=== PATIENT | female | born 1970 ===

== ENCOUNTER 2020-05-12 12:37 | Outpatient (RCR) | payer MEDICAID, SELFPAY | END 2020-09-20 07:50 | disposition other institution (70) | LOC: HO.PT 12:37 | PROVIDERS: PCP Student in an Organized Health Care Education/Training Program; Visit Provider Student in an Organized Health Care Education/Training Program | DX: M54.2 Cervicalgia (principal); G89.29 Other chronic pain | CPT/HCPCS: 97110; 97112; 97162 ==

== ENCOUNTER → 2020-05-24 12:50 | Outpatient (BNVA) | payer MEDICAID, SELFPAY | PROVIDERS: PCP Student in an Organized Health Care Education/Training Program; Visit Provider Nurse Practitioner | DX: Z76.89 Persons encountering health services in other specified circumstances (principal) ==

== ENCOUNTER 2020-07-15 09:41 | Outpatient (REF) | payer MEDICAID, SELFPAY ==
--- NOTE | ~2020-07-15 | MM_ITS ---
EXAMINATION: MM SCREENING DIGITAL BREAST TOMOSYNTHESIS, BILATERAL CLINICAL INFORMATION: Screening. Asymptomatic. The lifetime risk of breast cancer based on the Tyrer-Cuzick Model is 12%. COMPARISON: Mammography: 07/10/2019, 07/04/2018, 06/28/2017 TECHNIQUE: Digital breast tomosynthesis is performed in both the craniocaudal and mediolateral oblique views along with computer-aided detection (CAD). Synthesized 2D images are generated from the tomosynthesis. FINDINGS: There are scattered areas of fibroglandular density (ACR BI-RADS breast composition Category b). The right breast is unremarkable. There is no developing density or interval mass or architectural abnormality. Neither breast shows abnormal calcifications. The bilateral axilla and skin contours are unremarkable. Left MLO view has some radiating lines posterior upper quadrant on tomography, 9 cm from nipple. There is no correlate on CC view. Patient will be recalled for additional imaging. MM/MM tomosynthesis screening BI IMPRESSION: 1. Left: Question architectural changes posterior upper breast on MLO tomography. 2. Right: No mammographic evidence of malignancy. ASSESSMENT: BI-RADS 0: Incomplete - Need Additional Imaging Evaluation RECOMMENDATION: 1. Additional views of the left breast (3-D MLO spot, 3-D ML). 2. Targeted ultrasound if warranted after review of the additional views. 3. Radiology department staff will contact the patient for additional imaging. This patient's information was entered into a reminder system with a target due date for their next mammogram.
== END 2020-07-15 09:42 | disposition home or self-care (01) ==
LOC: HO.MAMMO 09:41
PROVIDERS: PCP Student in an Organized Health Care Education/Training Program; Visit Provider Student in an Organized Health Care Education/Training Program
DX: Z12.31 Encounter for screening mammogram for malignant neoplasm of breast (principal)
CPT/HCPCS: 77063; 77067

== ENCOUNTER 2020-07-24 14:28 | Outpatient (REF) | payer MEDICAID, SELFPAY ==
--- NOTE | ~2020-07-24 | MM_ITS ---
EXAMINATION: MM DIAGNOSTIC DIGITAL BREAST TOMOSYNTHESIS, LEFT CLINICAL INFORMATION: Recall from screening for questionable radiating lines posterior upper left breast on MLO view. TC score 12%. COMPARISON: Mammography: 07/15/2020, 07/10/2019, 07/04/2018 TECHNIQUE: Digital breast tomosynthesis is performed. 2D images are generated from the tomosynthesis. The following views are obtained: Spot MLO, standard ML. FINDINGS: There are scattered areas of fibroglandular density (ACR BI-RADS breast composition Category b). The additional views show no persistent radiating lines. There is no architectural abnormality or developing density or mass. Results are discussed with the patient at time of visit. MM/MM tomosynthesis diagnostic LT IMPRESSION: Additional views show no architectural abnormality. ASSESSMENT: BI-RADS 1: Negative RECOMMENDATION: Routine annual mammography screening. This patient's information was entered into a reminder system with a target due date for their next mammogram.
== END 2020-07-24 14:29 | disposition home or self-care (01) ==
LOC: HO.MAMMO 14:28
PROVIDERS: PCP Student in an Organized Health Care Education/Training Program; Visit Provider Student in an Organized Health Care Education/Training Program
DX: N64.89 Other specified disorders of breast (principal)
CPT/HCPCS: 77061; 77065

== ENCOUNTER → 2020-10-10 16:18 | Outpatient (BNVA) | payer MEDICAID, SELFPAY | PROVIDERS: PCP Student in an Organized Health Care Education/Training Program; Visit Provider Nurse Practitioner ==

== ENCOUNTER → 2021-02-13 15:12 | Outpatient (BNVA) | payer MEDICAID, SELFPAY | PROVIDERS: PCP Student in an Organized Health Care Education/Training Program; Visit Provider Nurse Practitioner ==

== ENCOUNTER 2021-06-14 15:00 | Outpatient (REF) | payer MEDICAID, SELFPAY ==
[2021-06-14 15:44] LABS: MANUAL DIFF FLAG NO
[2021-06-14 15:51] LABS: Basophils Percent Auto 0.4 % (0-2); Eosinophils Absolute Auto 0.1 X10*3/uL (0.0-0.4); Eosinophils Percent Auto 0.8 % (0-4); Hematocrit 37.7 % (37.0-47.0); Hemoglobin 12.4 g/dl (12.0-16.0); Imm Gran Abs Auto 0.05 X10*3/uL (0.00-0.03); Imm Gran Pct Auto 0.6 % (0.0-0.4); Lymphocytes Percent Auto 34.9 % (20-40); Mean Corpuscular HGB Conc 32.9 g/dl (31.0-35.0); Mean Corpuscular Hemoglobin 31.2 pg (27.0-33.0); Monocytes Absolute Auto 0.6 X10*3/uL (0.1-1.2); Monocytes Percent Auto 7.5 % (2-11); Neutrophils Absolute Auto 4.7 x10*3/uL (2.0-8.3); Neutrophils Percent Auto 55.8 % (45-73); Platelet Count 316 X10*3/uL (160-400); Red Blood Count 3.97 X10*6/uL (4.20-5.50); Red Cell Distribution Width 12.5 % (11.0-16.0); White Blood Count 8.5 X10*3/uL (4.8-10.8)
[2021-06-14 16:10] LABS: Alanine Aminotransferase 43 U/L (0-31); Albumin Level 4.3 g/dL (3.5-5.0); Alkaline Phosphatase 74 U/L (39-117); Anion Gap 12 (12-20); Aspartate Amino Transferase 23 U/L (5-31); Bilirubin Total 0.2 mg/dL (0.0-1.0); Blood Urea Nitrogen 19 mg/dL (9-16); Calcium 10.4 mg/dL (8.4-10.2); Carbon Dioxide 28 mmol/L (22-29); Chloride 106 mmol/L (96-108); Estimated Glomerular Filt Rate 60; Glucose Random 99 mg/dL (60-115); Potassium 4.5 mmol/L (3.3-5.1); Sodium 141 mmol/L (135-145)
== END 2021-06-14 15:01 | disposition home or self-care (01) ==
LOC: HO.LAB 15:00
PROVIDERS: PCP Student in an Organized Health Care Education/Training Program; Visit Provider Nurse Practitioner
DX: K21.9 Gastro-esophageal reflux disease without esophagitis (principal); R14.0 Abdominal distension (gaseous); K59.00 Constipation, unspecified; Z80.0 Family history of malignant neoplasm of digestive organs
CPT/HCPCS: 36415; 80053; 85025; 99212

== ENCOUNTER 2021-07-24 13:51 | Outpatient (REF) | payer MEDICAID, SELFPAY ==
--- NOTE | ~2021-07-24 | MM_ITS ---
EXAMINATION: MM SCREENING DIGITAL BREAST TOMOSYNTHESIS, BILATERAL CLINICAL INFORMATION: Screening. Asymptomatic. Family history mother, paternal grandmother. The lifetime risk of breast cancer based on the Tyrer-Cuzick Model is 20%. COMPARISON: Mammography: 03/23/2021, 07/15/2020, 07/10/2019, 07/04/2018 TECHNIQUE: Digital breast tomosynthesis is performed in both the craniocaudal and mediolateral oblique views along with computer-aided detection (CAD). Synthesized 2D images are generated from the tomosynthesis. Additional left CC view is provided. FINDINGS: There are scattered areas of fibroglandular density (ACR BI-RADS breast composition Category b). There are no significant masses, abnormal calcifications, or other abnormalities. There is fine fibronodular parenchymal pattern similar to prior studies. No architectural abnormality. No developing density. No significant changes. MM/MM tomosynthesis screening BI IMPRESSION: No mammographic evidence of malignancy. ASSESSMENT: BI-RADS 2: Benign RECOMMENDATION: 1. Routine annual mammography screening. 2. The lifetime risk of breast cancer based on the Tyrer-Cuzick Model is 20%. Additional annual adjunct screening with breast MRI may be of benefit in women with a risk score of 20% or greater. This patient's information was entered into a reminder system with a target due date for their next mammogram.
== END 2021-07-24 13:52 | disposition home or self-care (01) ==
LOC: HO.MAMMO 13:51
PROVIDERS: PCP Student in an Organized Health Care Education/Training Program; Visit Provider Student in an Organized Health Care Education/Training Program
DX: Z12.31 Encounter for screening mammogram for malignant neoplasm of breast (principal)
CPT/HCPCS: 77063; 77067

== ENCOUNTER → 2022-03-06 13:45 | Outpatient (BNVA) | payer MEDICAID, SELFPAY | PROVIDERS: PCP Student in an Organized Health Care Education/Training Program; Visit Provider Physician Assistant | DX: M77.11 Lateral epicondylitis, right elbow (principal); M77.12 Lateral epicondylitis, left elbow; M65.4 Radial styloid tenosynovitis [de Quervain] | CPT/HCPCS: 99202 ==

== ENCOUNTER 2022-03-21 09:09 | Day surgery (SDC) | payer MEDICAID, SELFPAY ==
--- NOTE | 2022-03-20 10:18 | HO.ANESPROP2 ---
Documented by User: Claudia Conley NP 03/20/22 10:18 HPI - Anesthesia Eval Consult details Narrative: 51yo F for Colonoscopy PMFSH Active Problems Active Problems: All Active Problems (Updated 03/06/22 @ 14:12 by Miquel Cruz) De Quervain's tenosynovitis, bilateral (Acute) Lateral epicondylitis of both elbows (Acute) GERD (gastroesophageal reflux disease) (Acute) Abdominal bloating (Acute) Constipation (Acute) Dermatophytosis (Acute) HIV (human immunodeficiency virus infection) (Acute) HTN (hypertension), benign (Acute) Allergic rhinitis (Acute) Anxiety (Acute) PVCs (premature ventricular contractions) (Acute) Family history of colon cancer in father (Acute) Past Medical History Medical History Anxiety GERD (gastroesophageal reflux disease) HIV (human immunodeficiency virus infection) HTN (hypertension) PVCs (premature ventricular contractions) Family History Family History Father Colon cancer Mother Asthma Heart problem Sister No problems noted. 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 Meds Allergies Allergy/AdvReac Type Severity Reaction Status Date / Time amoxicillin Allergy Intermediate Hives Verified 03/06/22 13:49 clindamycin Allergy Intermediate Hives Verified 03/06/22 13:49 Home Medications Medication Instructions Recorded Confirmed Last Taken Type bictegravir 50 mg-emtricitabine 1 tab PO DAILY 11/02/21 11/02/21 Unknown History 200 mg-tenofovir alafenam 25 mg tablet (Biktarvy) lisinopril 10 mg tablet 1 tab PO DAILY 11/02/21 11/02/21 Unknown History loratadine 10 mg tablet 1 tab PO DAILY 11/02/21 11/02/21 Unknown History spironolactone 100 mg tablet 1 tab PO DAILY acne 11/02/21 11/02/21 Unknown History Exam Exam Date and Time: March 20, 2022 101 Assessment and Plan Assessment Anesthesia Assessment: Chart Reviewed Documented by User: Tano Tabor MD 03/21/22 09:39 PMFSH Past Medical History Medical History Anxiety GERD (gastroesophageal reflux disease) HIV (human immunodeficiency virus infection) HTN (hypertension) PVCs (premature ventricular contractions) Family History Family History Father Colon cancer Mother Asthma Heart problem Sister No problems noted. 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 Meds Allergies Allergy/AdvReac Type Severity Reaction Status Date / Time amoxicillin Allergy Intermediate Hives Verified 03/06/22 13:49 clindamycin Allergy Intermediate Hives Verified 03/06/22 13:49 Home Medications Medication Instructions Recorded Confirmed Last Taken Type bictegravir 50 mg-emtricitabine 1 tab PO DAILY 11/02/21 11/02/21 Unknown History 200 mg-tenofovir alafenam 25 mg tablet (Biktarvy) lisinopril 10 mg tablet 1 tab PO DAILY 11/02/21 11/02/21 Unknown History loratadine 10 mg tablet 1 tab PO DAILY 11/02/21 11/02/21 Unknown History spironolactone 100 mg tablet 1 tab PO DAILY acne 11/02/21 11/02/21 Unknown History Exam Airway Mallampati Class: II TM Dist: >3cm Neck ROM: Full Loose/Missing/Broken Teeth: No Heart: [id number] Lungs: cta b/l Assessment and Plan Assessment Anesthesia Assessment: Anesthesia Plan Discussed Final Anesthetic Review Family History of Problems with Anesthesia: No History of Problems with Anesthesia: No NPO: Yes ASA Class: II Final Preanesthetic Review: No Changes in Pt Med Stat, Meds/Allgs Chart Reviewed, Consent Obtained/Reviewed and Anes Risks/Benef Reviewed Patient Risk: Intermediate Procedure Risk: Intermediate Assessment/Block/Sedation in SS: Assess/Block/Sedation-SS Anesthetic Plan Anesthetic Plan: MAC: and Agree w/ Assess. and Plan Disposition: Standard PACU
[2022-03-21 07:23] VITALS: BMI 21.9
--- NOTE | 2022-03-21 08:14 | PC.NURSE ---
called patient left a message arrival time 0800 pt not here
--- NOTE | 2022-03-21 08:28 | PC.NURSE ---
patients a no show everyone
[2022-03-21 09:16] VITALS: RESP 18; TEMP 36.1; O2SAT 97
[2022-03-21] MEDS: Lactated Ringers 1,000 ML 100 ML IVCONT (09:36)
--- NOTE | 2022-03-21 09:43 | MHC.SHP ---
Pre-Procedural Eval Section A Date of Service: 03/21/22 Section B Chief Complaint: constipation Details of Present Illness: father with CRC Relevant Family History (Specify if Yes): Yes Relevant Social History: None Present Medications: see Short Stay Collaborative assessment Medical History: Significant History (Anxiety GERD (gastroesophageal reflux disease) HIV (human immunodeficiency virus infection) HTN (hypertension) PVCs (premature ventricular contractions)) History of Previous Operations: Relevant previous surgery/procedure and date(s) (H/O colonoscopy History of section Hx of tubal ligation) Allergies: Allergies Allergy/AdvReac Type Severity Reaction Status Date / Time amoxicillin Allergy Intermediate Hives Verified 03/06/22 13:49 clindamycin Allergy Intermediate Hives Verified 03/06/22 13:49 Review of Systems Sugical H&P ROS: Negative: Constitution, Cardiovascular, Respiratory, Neurological, Psychiatric, Hem-Onc, Allergic/Immunologic, Gastrointestinal, Genitourinary, Musculoskeletal, Integumentary, Endocrine and Eyes/Ears/Nose/Throat Exam Surgical H&P Exam: Normal: HEENT, Normal: Heart, Normal: Lungs, Normal: Extremities, Normal: Abdomen, Normal: Skin and Normal: Neurological Plan Diagnosis/Plan: Unchanged I have reviewed the history and physical and performed a pertinent physical examination on my patient. No changes have occurred unless specified.
[2022-03-21 09:48] VITALS: BP 111/76
--- NOTE | 2022-03-21 09:49 | HO.ANESPROP2 ---
[facility] Active Problems Active Problems: All Active Problems (Updated 03/06/22 @ 14:12 by Miquel Cruz) De Quervain's tenosynovitis, bilateral (Acute) Lateral epicondylitis of both elbows (Acute) GERD (gastroesophageal reflux disease) (Acute) Abdominal bloating (Acute) Constipation (Acute) Dermatophytosis (Acute) HIV (human immunodeficiency virus infection) (Acute) HTN (hypertension), benign (Acute) Allergic rhinitis (Acute) Anxiety (Acute) PVCs (premature ventricular contractions) (Acute) Family history of colon cancer in father (Acute) Past Medical History Medical History Anxiety GERD (gastroesophageal reflux disease) HIV (human immunodeficiency virus infection) HTN (hypertension) PVCs (premature ventricular contractions) Functional capacity: independent ambulation Patient : No Family History Family History Father Colon cancer Mother Asthma Heart problem Sister No problems noted. 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 Meds Allergies Allergy/AdvReac Type Severity Reaction Status Date / Time amoxicillin Allergy Intermediate Hives Verified 03/06/22 13:49 clindamycin Allergy Intermediate Hives Verified 03/06/22 13:49 Active Medications: Current Medications Acetaminophen (Acetaminophen 325 Mg Tablet) 650 mg PO ONCE PRN PRN Reason: Pain, Mild (Pain Scale 1-3) Lactated Ringer's (Lr) 1,000 mls @ 100 mls/hr IVCONT .Q10H TIERRA Last Admin: 03/21/22 09:36 Dose: 100 mls/hr Ondansetron HCl (Ondansetron Hcl 4 Mg/2 Ml Vial) 4 mg IVPUSH ONCE PRN PRN Reason: Nausea and Vomiting Home Medications Medication Instructions Recorded Confirmed Last Taken Type bictegravir 50 mg-emtricitabine 1 tab PO DAILY 11/02/21 11/02/21 Unknown History 200 mg-tenofovir alafenam 25 mg tablet (Biktarvy) lisinopril 10 mg tablet 1 tab PO DAILY 11/02/21 11/02/21 Unknown History loratadine 10 mg tablet 1 tab PO DAILY 11/02/21 11/02/21 Unknown History spironolactone 100 mg tablet 1 tab PO DAILY acne 11/02/21 11/02/21 Unknown History Exam Exam Date and Time: March 21, 2022 0949 Height,Weight and Vital Signs: Height 5 ft 3 in Weight 56.245 kg Last Vital Signs Temp 97 F 03/21/22 09:16 Resp 18 03/21/22 09:16 BP 111/76 03/21/22 09:48 Pulse Ox 97 03/21/22 09:16 O2 Del Method 03/21/22 09:16 Airway Mallampati Class: II TM Dist: >3cm Neck ROM: Full Heart: RRR Lungs: CTA Assessment and Plan Final Anesthetic Review Family History of Problems with Anesthesia: No History of Problems with Anesthesia: No ASA Class: II Final Preanesthetic Review: No Changes in Pt Med Stat, Meds/Allgs Chart Reviewed, Consent Obtained/Reviewed and Anes Risks/Benef Reviewed Patient Risk: Low Procedure Risk: Low Anesthetic Plan Anesthetic Plan: MAC: Disposition: Standard PACU
--- NOTE | 2022-03-21 10:11 | P.OP_ITS ---
Operative Note Operative Note Date of Service: 03/21/22 Narrative: Operative Information Procedure Description: Colonoscopy Indication: constipation Anesthesia: MAC COLONOSCOPY Instrument: Olympus variable stiffness pediatric scope 190L Colonoscopy Monitoring: Vital signs and clinical assessment, continuous EKG monitoring, Pulse oximetry, Carbon Dioxide monitoring and blood pressure monitoring were done throughout the procedure. Colon withdrawal time was 7 minutes. Procedure: The patient was placed in the left lateral decubitis position and pre-procedure medications were administered. After a digital rectal examination of the ano-rectum, the video colonoscope was inserted into the rectum and advanced through the colon to the cecum/TI. The colonoscope was slowly withdrawn in a retrograde panoramic fashion and the colon mucosa was carefully examined including a retroflexed view of the rectum. Findings and interventions are described below. Procedure Difficulty: easy Findings: melanosis coli noted Terminal Ileum-normal Cecum:normal Ascending Colon: normal Transverse Colon -normal Descending Colon:normal Sigmoid Colon: normal Rectum: Retroflexion with small internal hemorrhoids, grade I with skin tags Anorectum - normal Colon preparation: [place] Bowel Preparation Scale Right colon; 2 Transverse colon: 3 Left colon; 3 (0 = Unprepared colon segment with mucosa not seen due to solid stool that cannot be cleared. 1 = Portion of mucosa of the colon segment seen, but other areas of the colon segment not well seen due to staining, residual stool and/or opaque liquid. 2 = Minor amount of residual staining, small fragments of stool and/or opaque liquid, but mucosa of colon segment seen well. 3 = Entire mucosa of colon segment seen well with no residual staining, small fragments of stool or opaque liquid) Impression and Post Procedure Diagnosis: melanosis coli internal hemorrhoids, skin tags Plan: High fiber diet leaflet Avoid straining at stool, epsom salts and sitz bath, anusol supps or cream Repeat Colonoscopy in 5 years due to FH or earlier if clinically indicated Above findings were reviewed with the patient and relevant handouts were provided if indicated.
[2022-03-21 10:15] VITALS: BP 93/59; PULSE 74; RESP 16; TEMP 36.3; O2SAT 96
[2022-03-21 10:30] VITALS: BP 108/69; PULSE 75; RESP 16; TEMP 36.3; O2SAT 98
== END 2022-03-21 11:08 ==
LOC: HO.SSS 09:09
PROVIDERS: PCP Student in an Organized Health Care Education/Training Program; Visit Provider Internal Medicine Gastroenterology
PROC: 0DJD8ZZ Inspection of Lower Intestinal Tract, Via Natural or Artificial Opening Endoscopic (ICD-10-PCS; CPT 45378; principal; 2022-03-21 09:20)
DX: K59.00 Constipation, unspecified (principal); Z80.0 Family history of malignant neoplasm of digestive organs; K63.89 Other specified diseases of intestine; K64.0 First degree hemorrhoids; K64.4 Residual hemorrhoidal skin tags; K21.9 Gastro-esophageal reflux disease without esophagitis; I10 Essential (primary) hypertension; B20 Human immunodeficiency virus [HIV] disease; F41.1 Generalized anxiety disorder; I49.3 Ventricular premature depolarization; Z79.899 Other long term (current) drug therapy; Z88.1 Allergy status to other antibiotic agents
CPT/HCPCS: 45378

== ENCOUNTER → 2022-06-19 08:41 | Outpatient (BNVA) | payer MEDICAID, SELFPAY | PROVIDERS: PCP Student in an Organized Health Care Education/Training Program; Visit Provider Nurse Practitioner | DX: K59.00 Constipation, unspecified (principal); K21.9 Gastro-esophageal reflux disease without esophagitis | CPT/HCPCS: 99212 ==

== ENCOUNTER 2022-07-26 14:25 | Outpatient (REF) | payer MEDICAID, SELFPAY ==
--- NOTE | ~2022-07-26 | MM_ITS ---
EXAMINATION: MM SCREENING DIGITAL BREAST TOMOSYNTHESIS, BILATERAL CLINICAL INFORMATION: Screening. Asymptomatic. Family history breast cancer, mother, paternal grandmother. TC score 21%. COMPARISON: Mammography: 07/24/2021, 07/24/2020, 07/15/2020, 07/10/2019 TECHNIQUE: Digital breast tomosynthesis is performed in both the craniocaudal and mediolateral oblique views along with computer-aided detection (CAD). Synthesized 2D images are generated from the tomosynthesis. FINDINGS: There are scattered areas of fibroglandular density (ACR BI-RADS breast composition Category b). There are no significant masses, abnormal calcifications, or other abnormalities. No architectural abnormality or developing density or significant change from prior studies. The axilla and skin contours are unremarkable. MM/MM tomosynthesis screening BI IMPRESSION: No mammographic evidence of malignancy. ASSESSMENT: BI-RADS 1: Negative RECOMMENDATION: Routine annual mammography screening. This patient's information was entered into a reminder system with a target due date for their next mammogram.
== END 2022-07-26 14:26 | disposition home or self-care (01) ==
LOC: HO.MAMMO 14:25
PROVIDERS: PCP Student in an Organized Health Care Education/Training Program; Visit Provider Student in an Organized Health Care Education/Training Program
DX: Z12.31 Encounter for screening mammogram for malignant neoplasm of breast (principal)
CPT/HCPCS: 77063; 77067

== ENCOUNTER 2022-12-18 10:10 | Outpatient (AMB) | payer MEDICAID, SELFPAY ==
--- NOTE | 2022-12-18 10:25 | A.OFFVIS_ITS ---
Intake Vital Signs 12/18/22 10:28 Height 5 ft 3 in Weight 148 lb 2.41 oz BMI 26.2 BP 129/77 Blood Pressure Location Lt brachial Position Sitting Pulse 84 Intake Visit Reasons: 6 month follow up Intake Note: Lupe presents in office as a est.patient for a 6month f/u PT CC: pt reports having no concerns pt denies any other GI Issues Switch Foreman Required: No Accompanied by: Self / Same As Patient Allergies amoxicillin Allergy (Intermediate, Verified 12/18/22 10:29) Hives clindamycin Allergy (Intermediate, Verified 12/18/22 10:29) Hives HPI 6 month follow up HPI Details Assessment & Plan (1) Constipation: ?Code(s): K59.00 - Constipation, unspecified ?Plan: She tolerated the procedure well, she was counselled re: melanosis coli. She has progressed to bisacodyl since the senna stopped working. This is ok, but she does better when she has her fiber pills 1 tabs bid, but then when I am going well I run out! We have not rxed this, and this would be better than the stimulant laxatives so she is to find out for me what type of fiber (for insurance coverage) and I will take over rx. Her GERD remains well controlled on omeprazole 20 mg daily. ROV 6 mos. (2) GERD (gastroesophageal reflux disease): ?Code(s): K21.9 - Gastro-esophageal reflux disease without esophagitis ? ? ? Medications: New bisacodyl (Dulcola x (bisacodyl)) 10 mg (2 x 5 mg) P O BEDTIME 30 days 60 tabs 6RF K59.00 - Constipat ion, unspecified ? Refilled omeprazole 20 mg? PO DAILY 30 days 30 caps 6RF C ? ? simethicone (Gas R elief (simethicone )) 180 mg? PO QID 30 days PRN 120 caps 6RF abdominal dist ention R14.0 - Abdominal distension (gaseou s) ? docusate sodium 100 mg? PO BID 60 caps 6RF K59.00 - Constipat ion, unspecified TODAY'S VISIT The bisacodyl tablets are now moving her bowels well and her bloating is decreasing. She continues on colace, simethicone and omeprazole 20mg qd. At this point she is satisfied with her GI regimen. ROV 6 mos. PFSH Medical History Anxiety GERD (gastroesophageal reflux disease) HIV (human immunodeficiency virus infection) HTN (hypertension) PVCs (premature ventricular contractions) Surgical History H/O colonoscopy History of section Hx of tubal ligation Family History Father Colon cancer Mother Asthma Heart problem Sister No problems noted. 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 Review of Systems Const Denies fatigue, Denies fever(s), Denies night sweats, Denies poor appetite and Denies weight loss ENT Reports Normal hearing present, Denies dental pain, Denies dysphagia, Denies hearing loss, Denies mouth pain, Denies odynophagia, Denies throat swelling, Denies tongue swelling and Reports other (Dentition adequate) Card Reports no additional complaints Resp Reports no additional complaints GI Denies abdominal pain, Denies melena, Reports bloating, Denies hematochezia, Reports constipation, Denies GI cramping, Denies dysphagia, Denies excessive flatus, Denies early satiety, Reports heartburn, Denies diarrhea, Denies nausea, Denies odynophagia, Denies vomiting and Denies hematemesis Skin/Breast Denies pruritus, Denies lesions, Denies rash and Denies jaundice Neuro Reports Normal hearing present and Denies Abnormal speech present Endo Denies fatigue Aller/Immun Denies throat swelling and Denies tongue swelling Physical Exam Vital Signs: Last Vital Signs Pulse 84 12/18/22 10:28 BP 129/77 12/18/22 10:28 BMI result Body Mass Index 26.2 Const General: cooperative, no acute distress, well developed and well groomed Nutritional Appearance: average body habitus and well nourished Orientation/consciousness: oriented to person, oriented to place and oriented to time Limitations: language barrier HEENT Head: Yes normocephalic and Yes atraumatic Eyes General: appearance normal, both eyes and all related structures Pupils: Equal, round and reactive pupils present Neck Neck: Yes normal visual inspection and Yes no lymphadenopathy Thyroid: Thyroid normal Resp Effort & Inspection: normal respiratory effort and able to speak in complete sentences Auscultation: clear to auscultation bilaterally Cardio Rate: regular rate Rhythm: regular rhythm Heart sounds: Normal, physiologic split S2 sound present Peripheral pulses: radial pulses present and posterior tibial pulses present GI Inspection: No distended and No Abdominal panniculus present Palpation (GI): Soft to palpation, nontender, no guarding, not rigid and No hepatosplenomegaly present Percussion: Yes normal to percussion Auscultation: normal bowel sounds Rectal Exam - Female: deferred Skin General skin exam: no rashes or lesions noted, turgor normal, skin not dry, no jaundice, No spider nevi and no striae Rashes: no rashes Nails: normal Neuro General: oriented to person, oriented to place and oriented to time Cranial nerves: Yes Equal, round and reactive pupils present and Yes Normal hearing present Speech: No Abnormal speech present Extrem General: Yes normal to inspection, No clubbing, No cyanosis and No edema Psych Appearance: grossly normal and well kempt Mental Status: mental status grossly normal Speech and movement: Normal speech and movement present Affect: normal affect Attitude: cooperative Thought process: Normal thought process present and not confabulating Thought content: Normal thought content present Insight: Fair insight present (Psych) Judgement: Fair judgement present (Psych) Assessment & Plan Assessment & Plan (1) GERD (gastroesophageal reflux disease): Code(s): K21.9 - Gastro-esophageal reflux disease without esophagitis Plan: The bisacodyl tablets are now moving her bowels well and her bloating is decreasing. She continues on colace, simethicone and omeprazole 20mg qd. At this point she is satisfied with her GI regimen. ROV 6 mos. (2) Constipation: Code(s): K59.00 - Constipation, unspecified (3) Abdominal bloating: Code(s): R14.0 - Abdominal distension (gaseous) Medications: Refilled bisacodyl (Dulcolax (bisacodyl)) 10 mg (2 x 5 mg) PO BEDTIME 30 days 60 tabs 6RF K59.00 - Constipation, unspecified docusate sodium 100 mg PO BID 60 caps 6RF K59.00 - Constipation, unspecified omeprazole 20 mg PO DAILY 30 days 30 caps 6RF simethicone (Gas Relief (simethicone)) 180 mg PO QID 30 days PRN 120 caps 6RF abdominal distention R14.0 - Abdominal distension (gaseous) Coding Level of Care Code Est Pt Level 3 (89656) Diagnoses GERD (gastroesophageal reflux disease) K21.9 Constipation K59.00 Abdominal bloating R14.0
[2022-12-18 10:28] VITALS: BP 129/77; PULSE 84; BMI 26.2
== END 2022-12-18 10:45 | disposition home or self-care (01) ==
PROVIDERS: Visit Provider Nurse Practitioner
DX: K21.9 Gastro-esophageal reflux disease without esophagitis (principal); K59.00 Constipation, unspecified; R14.0 Abdominal distension (gaseous)
CPT/HCPCS: 99213

== ENCOUNTER → 2022-12-18 10:10 | Outpatient (BNVA) | payer MEDICAID, SELFPAY | PROVIDERS: Visit Provider Nurse Practitioner | DX: K21.9 Gastro-esophageal reflux disease without esophagitis (principal); K59.00 Constipation, unspecified; R14.0 Abdominal distension (gaseous) | CPT/HCPCS: 99213 ==

== ENCOUNTER 2023-02-25 15:16 | Outpatient (REF) | payer MEDICAID, SELFPAY | END 2023-02-25 15:17 | disposition home or self-care (01) | LOC: HO.CHCLNP 15:16 | PROVIDERS: Visit Provider Advanced Practice Midwife | DX: B20 Human immunodeficiency virus [HIV] disease (principal) | CPT/HCPCS: 88112; 88142 ==

== ENCOUNTER 2023-04-24 10:46 | Outpatient (REF) | payer MEDICAID, SELFPAY ==
[2023-04-24 14:28] LABS: MANUAL DIFF FLAG NO
[2023-04-24 14:42] LABS: Basophils Absolute Auto 0.1 X10*3/uL (0.0-0.2); Basophils Percent Auto 0.6 % (0-2); Eosinophils Absolute Auto 0.2 X10*3/uL (0.0-0.4); Eosinophils Percent Auto 2.4 % (0-4); Hematocrit 39.9 % (37.0-47.0); Imm Gran Abs Auto 0.02 X10*3/uL (0.00-0.03); Imm Gran Pct Auto 0.2 % (0.0-0.4); Lymphocytes Percent Auto 35.8 % (20-40); Mean Corpuscular HGB Conc 32.6 g/dl (31.0-35.0); Mean Corpuscular Hemoglobin 30.4 pg (27.0-33.0); Mean Corpuscular Volume 93.2 fL (80.0-98.0); Mean Platelet Volume 12.9 fL (9.4-12.3); Monocytes Absolute Auto 0.6 X10*3/uL (0.1-1.2); Monocytes Percent Auto 6.7 % (2-11); Neutrophils Absolute Auto 4.6 x10*3/uL (2.0-8.3); Neutrophils Percent Auto 54.3 % (45-73); Platelet Count 265 X10*3/uL (160-400); Red Blood Count 4.28 X10*6/uL (4.20-5.50); Red Cell Distribution Width 13.8 % (11.0-16.0); White Blood Count 8.5 X10*3/uL (4.8-10.8)
[2023-04-24 14:48] LABS: Alanine Aminotransferase 46 U/L (0-31); Albumin Level 4.3 g/dL (3.5-5.0); Alkaline Phosphatase 77 U/L (39-117); Anion Gap 13 (12-20); Aspartate Amino Transferase 28 U/L (5-31); Bilirubin Total 0.2 mg/dL (0.0-1.0); Blood Urea Nitrogen 34 mg/dL (9-16); Calcium 10.2 mg/dL (8.4-10.2); Carbon Dioxide 22 mmol/L (22-29); Chloride 109 mmol/L (96-108); Estimated Glomerular Filt Rate 55; Glucose Random 104 mg/dL (60-115); Potassium 4.7 mmol/L (3.3-5.1); Sodium 139 mmol/L (135-145); Total Protein 8.1 g/dL (6.5-8.0)
[2023-04-25 08:04] LABS: Absolute CD3 Count 2411 cells/uL (840-3060); Absolute CD4 Count 1044 cells/uL (490-1740); Absolute CD8 Count 1316 cells/uL (180-1170); Absolute Lymphocytes 3524 cells/uL (850-3900); CD4 CD8 Ratio 0.79 (0.86-5.00); Percent CD3 Cells 68 % (57-85); Percent CD4 Cells 30 % (30-61); Percent CD8 Cells 37 % (12-42)
[2023-04-25 14:48] LABS: HIV RNA PCR Qn Copies 58 copies/mL (NOT DETECTED); HIV RNA PCR Qn Log Copies 1.76 (NOT DETECTED)
== END 2023-04-24 10:47 | disposition home or self-care (01) ==
LOC: HO.CHCLDS 10:46
PROVIDERS: Visit Provider Internal Medicine
DX: B20 Human immunodeficiency virus [HIV] disease (principal)
CPT/HCPCS: 36415; 80053; 85025; 86359; 86360; 87536

== ENCOUNTER 2023-06-20 10:04 | Outpatient (AMB) | payer MEDICAID, SELFPAY ==
--- NOTE | 2023-06-20 10:08 | MHC.OFFVIS ---
Intake Vital Signs 06/20/23 10:09 Height 5 ft 3 in Weight 147 lb 4.301 oz BMI 26.1 BP 128/72 Blood Pressure Location Lt brachial Position Sitting Pulse 97 Intake Visit Reasons: 6 month follow up Intake Note: Patient presents to in office visit today in 6 months follow up of constipation. CC: Patient reports she is now taking Omeprazole Bid because she was experiencing increased heartburn and acid reflux at night and this has been helping well. Denies other GI symptoms today. 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 She continues on colace, simethicone and omeprazole 20mg qd. At this point she is satisfied with her GI regimen. ROV 6 mos. (2) Constipation: Code(s): K59.00 - Constipation, unspecified (3) Abdominal bloating: Code(s): R14.0 - Abdominal distension (gaseous) Medications: Refilled bisacodyl (Dulcola x (bisacodyl)) 10 mg (2 x 5 mg) P O BEDTIME 30 days 60 tabs 6RF K59.00 - Constipat ion, unspecified docusate sodium 100 mg PO BID 60 caps 6RF K59.00 - Constipat ion, unspecified omeprazole 20 mg PO DAILY 30 days 30 caps 6RF simethicone (Gas R elief (simethicone )) 180 mg PO QID 30 days PRN 120 caps 6RF abdominal dist ention R14.0 - Abdominal distension (gaseou s) TODAY'S VISIT She has been taking the omeprazole twice a day because she was having some breakthrough heartburn later in the day. Obviously this is fine. She also continues on her Dulcolax and Colace which are moving her bowels well and simethicone for bloating with good relief. Return office visit in 6 months. [facility] Medical History Anxiety HIV (human immunodeficiency virus infection) GERD (gastroesophageal reflux disease) HTN (hypertension) PVCs (premature ventricular contractions) Surgical History Hx of tubal ligation H/O colonoscopy History of section Family History Father Colon cancer Mother Asthma Heart problem Sister No problems noted. 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 Review of Systems Const Denies fatigue, Denies fever(s), Denies night sweats, Denies poor appetite and Denies weight loss ENT Reports Normal hearing present, Denies dental pain, Denies dysphagia, Denies hearing loss, Denies mouth pain, Denies odynophagia, Denies throat swelling, Denies tongue swelling and Reports other (Dentition adequate) Card Reports no additional complaints Resp Reports no additional complaints GI Denies abdominal pain, Denies melena, Denies bloating, Denies hematochezia, Reports constipation, Denies GI cramping, Denies dysphagia, Denies excessive flatus, Denies early satiety, Reports heartburn, Denies diarrhea, Denies nausea, Denies odynophagia, Denies vomiting and Denies hematemesis Skin/Breast Denies pruritus, Denies lesions, Denies rash and Denies jaundice Neuro Reports Normal hearing present and Denies Abnormal speech present Endo Denies fatigue Aller/Immun Denies throat swelling and Denies tongue swelling Physical Exam Vital Signs: Last Vital Signs Pulse 97 06/20/23 10:09 BP 128/72 06/20/23 10:09 BMI result Body Mass Index 26.1 Const General: cooperative, no acute distress, well developed and well groomed Nutritional Appearance: average body habitus and well nourished Orientation/consciousness: oriented to person, oriented to place and oriented to time Limitations: No language barrier HEENT Head: Yes normocephalic and Yes atraumatic Eyes General: appearance normal, both eyes and all related structures Pupils: Equal, round and reactive pupils present Neck Neck: Yes normal visual inspection and Yes no lymphadenopathy Thyroid: Thyroid normal Resp Effort & Inspection: normal respiratory effort and able to speak in complete sentences Auscultation: clear to auscultation bilaterally Cardio Rate: regular rate Rhythm: regular rhythm Heart sounds: Normal, physiologic split S2 sound present Peripheral pulses: radial pulses present and posterior tibial pulses present GI Inspection: No distended and No Abdominal panniculus present Palpation (GI): Soft to palpation, nontender, no guarding, not rigid and No hepatosplenomegaly present Percussion: Yes normal to percussion Auscultation: normal bowel sounds Rectal Exam - Female: deferred Skin General skin exam: no rashes or lesions noted, turgor normal, skin not dry, no jaundice, No spider nevi and no striae Rashes: no rashes Nails: normal Neuro General: oriented to person, oriented to place and oriented to time Cranial nerves: Yes Equal, round and reactive pupils present and Yes Normal hearing present Speech: No Abnormal speech present Extrem General: Yes normal to inspection, No clubbing, No cyanosis and No edema Psych Appearance: grossly normal and well kempt Mental Status: mental status grossly normal Speech and movement: Normal speech and movement present Affect: normal affect Attitude: cooperative Thought process: Normal thought process present and not confabulating Thought content: Normal thought content present Insight: Fair insight present (Psych) Judgement: Fair judgement present (Psych) Assessment & Plan Assessment & Plan (1) GERD (gastroesophageal reflux disease): Code(s): K21.9 - Gastro-esophageal reflux disease without esophagitis (2) Constipation: Code(s): K59.00 - Constipation, unspecified (3) Abdominal bloating: Code(s): R14.0 - Abdominal distension (gaseous) Plan She has been taking the omeprazole twice a day because she was having some breakthrough heartburn later in the day. Obviously this is fine. She also continues on her Dulcolax and Colace which are moving her bowels well and simethicone for bloating with good relief. She will be traveling to [facility] soon because her daughter is about to give ! Return office visit in 6 months. Medications: Changed From omeprazole 20 mg PO DAILY 30 days 30 caps 6RF To omeprazole 20 mg PO BID 30 days 60 caps 6RF Refilled simethicone (Gas Relief (simethicone)) 180 mg PO QID 30 days PRN 120 caps 6RF abdominal distention R14.0 - Abdominal distension (gaseous) docusate sodium 100 mg PO BID 60 caps 6RF K59.00 - Constipation, unspecified bisacodyl (Dulcolax (bisacodyl)) 10 mg (2 x 5 mg) PO BEDTIME 90 days 180 tabs 3RF K59.00 - Constipation, unspecified Coding Level of Care Code Est Pt Level 3 (13276) Diagnoses GERD (gastroesophageal reflux disease) K21.9 Constipation K59.00 Abdominal bloating R14.0
[2023-06-20 10:09] VITALS: BP 128/72; PULSE 97; BMI 26.1
== END 2023-06-20 10:28 | disposition home or self-care (01) ==
PROVIDERS: PCP Student in an Organized Health Care Education/Training Program; Visit Provider Nurse Practitioner
DX: K21.9 Gastro-esophageal reflux disease without esophagitis (principal); K59.00 Constipation, unspecified; R14.0 Abdominal distension (gaseous)
CPT/HCPCS: 99213

== ENCOUNTER → 2023-06-20 10:04 | Outpatient (BNVA) | payer MEDICAID, SELFPAY | PROVIDERS: PCP Student in an Organized Health Care Education/Training Program; Visit Provider Nurse Practitioner | DX: K59.00 Constipation, unspecified (principal); K21.9 Gastro-esophageal reflux disease without esophagitis; R14.0 Abdominal distension (gaseous); Z79.899 Other long term (current) drug therapy | CPT/HCPCS: 99212 ==

== ENCOUNTER 2023-08-22 11:43 | Outpatient (REF) | payer MEDICAID, SELFPAY | END 2023-08-22 11:44 | disposition home or self-care (01) | LOC: HO.MAMMO 11:43 | PROVIDERS: PCP Student in an Organized Health Care Education/Training Program; Visit Provider Student in an Organized Health Care Education/Training Program | DX: Z12.31 Encounter for screening mammogram for malignant neoplasm of breast (principal) | CPT/HCPCS: 77063; 77067 ==

== ENCOUNTER → 2023-08-22 12:00 | Outpatient (BNV) | payer MEDICAID, SELFPAY | PROVIDERS: PCP Student in an Organized Health Care Education/Training Program; Visit Provider Radiology Diagnostic Radiology | DX: Z12.31 Encounter for screening mammogram for malignant neoplasm of breast (principal) | CPT/HCPCS: 77063; 77067 ==

== ENCOUNTER 2023-10-31 13:45 | Outpatient (REF) | payer MEDICAID, SELFPAY ==
[2023-10-31 14:11] LABS: MANUAL DIFF FLAG NO
[2023-10-31 14:30] LABS: Basophils Absolute Auto 0.1 X10*3/uL (0.0-0.2); Basophils Percent Auto 0.6 % (0-2); Eosinophils Absolute Auto 0.1 X10*3/uL (0.0-0.4); Eosinophils Percent Auto 0.7 % (0-4); Hematocrit 37.7 % (37.0-47.0); Hemoglobin 12.6 g/dl (12.0-16.0); Imm Gran Abs Auto 0.03 X10*3/uL (0.00-0.03); Imm Gran Pct Auto 0.3 % (0.0-0.4); Lymphocytes Absolute Auto 3.5 X10*3/uL (1.2-4.9); Mean Corpuscular HGB Conc 33.4 g/dl (31.0-35.0); Mean Corpuscular Hemoglobin 31.5 pg (27.0-33.0); Mean Corpuscular Volume 94.3 fL (80.0-98.0); Mean Platelet Volume 12.1 fL (9.4-12.3); Monocytes Absolute Auto 0.7 X10*3/uL (0.1-1.2); Monocytes Percent Auto 7.8 % (2-11); Neutrophils Absolute Auto 4.4 x10*3/uL (2.0-8.3); Neutrophils Percent Auto 50.6 % (45-73); Platelet Count 292 X10*3/uL (160-400); White Blood Count 8.6 X10*3/uL (4.8-10.8)
[2023-10-31 15:07] LABS: Anion Gap 14 (12-20); Blood Urea Nitrogen 33 mg/dL (9-16); Calcium 10.4 mg/dL (8.4-10.2); Carbon Dioxide 20 mmol/L (22-29); Chloride 111 mmol/L (96-108); Estimated Glomerular Filt Rate 49; Glucose Random 91 mg/dL (60-115); Potassium 4.1 mmol/L (3.3-5.1); Sodium 141 mmol/L (135-145)
[2023-10-31 15:09] LABS: TSH reflex Free T4 0.62 uIU/mL (0.32-4.0)
== END 2023-10-31 13:46 | disposition home or self-care (01) ==
LOC: HO.CHCLDS 13:45
PROVIDERS: Visit Provider Internal Medicine
DX: F34.1 Dysthymic disorder (principal); R23.2 Flushing
CPT/HCPCS: 36415; 80048; 84443; 85025

== ENCOUNTER 2023-11-13 11:42 | Outpatient (REF) | payer MEDICAID, SELFPAY ==
--- NOTE | ~2023-11-13 | US_ITS ---
EXAMINATION: US RETROPERITONEAL LIMITED (RENAL ONLY) CLINICAL INFORMATION: Low GFR getting worse in the last 6 months. COMPARISON: None available. TECHNIQUE: Real-time imaging of the kidneys. FINDINGS: RIGHT KIDNEY: 10.1 x 4.5 x 4.8 cm (SAG x AP x TRV). The kidney is normal in size, contour, and echogenicity. Renal cortical thickness is normal. No calculi or focal parenchymal lesions. No hydronephrosis. LEFT KIDNEY: 11.7 x 4.2 x 4.2 cm (SAG x AP x TRV). The kidney is normal in size, contour, and echogenicity. Renal cortical thickness is normal. No calculi or focal parenchymal lesions. No hydronephrosis. ? Column of Sulaiman. US/US renal BI IMPRESSION: Normal renal ultrasound.
== END 2023-11-13 11:43 | disposition home or self-care (01) ==
LOC: HO.US 11:42
PROVIDERS: PCP Student in an Organized Health Care Education/Training Program; Visit Provider Internal Medicine
DX: R94.4 Abnormal results of kidney function studies (principal)
CPT/HCPCS: 36415; 76775; 80048; 82306; 83970

== ENCOUNTER 2023-11-13 13:23 | Outpatient (REF) | payer MEDICAID, SELFPAY ==
[2023-11-13 15:06] LABS: Parathyroid Hormone Intact 37.7 pg/mL (8.7-77.1)
[2023-11-13 15:10] LABS: Anion Gap 10 (12-20); Blood Urea Nitrogen 28 mg/dL (9-16); Calcium 10.8 mg/dL (8.4-10.2); Carbon Dioxide 26 mmol/L (22-29); Chloride 109 mmol/L (96-108); Estimated Glomerular Filt Rate 53; Glucose Random 109 mg/dL (60-115); Potassium 4.4 mmol/L (3.3-5.1); Sodium 141 mmol/L (135-145)
[2023-11-13 15:28] LABS: Vitamin D 25-OH Total 31.5 ng/mL (>30)
== END 2023-11-13 13:24 | disposition home or self-care (01) ==
LOC: HO.CHCLDS 13:23
PROVIDERS: Visit Provider Internal Medicine
DX: I47.10 Supraventricular tachycardia, unspecified (principal); E83.52 Hypercalcemia; R94.4 Abnormal results of kidney function studies
CPT/HCPCS: 36415; 80048; 82306; 83970

== ENCOUNTER 2023-11-21 13:51 | Outpatient (AMB) | payer MEDICAID, SELFPAY ==
--- NOTE | 2023-11-21 14:10 | A.OFFVIS_ITS ---
Vital Signs 11/21/23 14:12 Height 5 ft 3 in Weight 145 lb 8.081 oz BMI 25.8 BP 98/64 Blood Pressure Location Rt brachial Position Sitting Pulse 87 Pulse Source Pulse Oximeter Intake Visit Reasons: Hypercalcemia/CONFIRMED Intake Note: New patient present today for Hypercalcemia. Referred by PCP. 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 First noted to have high calcium [2020]. Currently using Calcium supplement [ no]. Takes Vitamin D daily (no) Currently on spironolactone Kidney stones: [no] Osteoporosis: [no] Has not had a bone density. 2 maternal aunts with osteoporosis, History of [place] use: [no) Biotin use: [no] Family history of high calcium or kidney stones: [no] Renal imaging: [pending] DXA:none prior Labs: 08/12/19 08/30/19 06/14/21 11:16 11:42 15:43 Creatinine Calcium 10.5 H D 10.5 H 10.4 H 25-OH Vitamin D Total PTH Intact 04/24/23 10/31/23 11/13/23 10:48 13:46 13:26 Creatinine 1.08 Calcium 10.2 10.4 H 10.8 H 25-OH Vitamin D Total 31.5 PTH Intact 37.7 She reports mood changes and hot flashes which did not improve with the addition of Effexor. She has f/u to discuss with her PCP. Reports some fatigue which she believes is associated with not sleeping well. [facility] Medical History Anxiety HIV (human immunodeficiency virus infection) GERD (gastroesophageal reflux disease) HTN (hypertension) PVCs (premature ventricular contractions) Surgical History Hx of tubal ligation H/O colonoscopy History of section Family History Father Colon cancer Mother Asthma Heart problem Sister No problems noted. 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 Neck exam shows nl thyroid about 15 gms. Lungs CTA. Heart S1 S2 Reg R/R -MRG. Abdomina exam benign . Muscle strength 5/5 proximally. No hirsuitism present. No striae present. Skin exam without lesion Const General: cooperative and healthy appearing Nutritional Appearance: average body habitus Orientation/consciousness: oriented to person Neck Thyroid: Thyroid normal Resp Effort & Inspection: normal respiratory effort Auscultation: clear to auscultation bilaterally Neuro General: oriented to person Results Reviewed Results Reviewed: Laboratory Tests 08/12/19 08/30/19 06/14/21 11:16 11:42 15:43 Creatinine Calcium 10.5 H D 10.5 H 10.4 H 25-OH Vitamin D Total PTH Intact 04/24/23 10/31/23 11/13/23 10:48 13:46 13:26 Creatinine 1.08 Calcium 10.2 10.4 H 10.8 H 25-OH Vitamin D Total 31.5 PTH Intact 37.7 Assessment & Plan Assessment & Plan (1) Hypercalcemia: Code(s): E83.52 - Hypercalcemia Category: Medical Plan: High calcium with normal PTH. Spironolactone can elevate ionized calcium and decrease PTH levels. Vitamin D is slightly low. Will order a 24 urine for calcium to and an ionized calcium. She has a renal ultrasound pending.Will contact patient with lab results and order dexa at that time. She was asked to contact me if she has not received a call from me. We discussed potential cau ses of high calcium and that the clinical indications for treatment were to prevent kidney stones and osteoporosis. Orders: Orders Calcium, Ionized Today E83.52 - Hypercalcemia Calcium, 24 Hr Ur Today E83.52 - Hypercalcemia Coding Level of Care Code Est Pt Level 3 (23422) Diagnoses Hypercalcemia E83.52 Time Spent (min) 30 Comment 15 min review chart and labs 15 with patient
[2023-11-21 14:12] VITALS: BP 98/64; PULSE 87; BMI 25.8
== END 2023-11-21 14:47 | disposition home or self-care (01) ==
PROVIDERS: PCP Student in an Organized Health Care Education/Training Program; Visit Provider Nurse Practitioner Adult Health
DX: E83.52 Hypercalcemia (principal)
CPT/HCPCS: 99203

== ENCOUNTER → 2023-11-21 13:51 | Outpatient (BNVA) | payer MEDICAID, SELFPAY | PROVIDERS: PCP Student in an Organized Health Care Education/Training Program; Visit Provider Nurse Practitioner Adult Health | DX: E83.52 Hypercalcemia (principal) | CPT/HCPCS: 99212 ==

== ENCOUNTER 2023-11-24 13:13 | Outpatient (REF) | payer MEDICAID, SELFPAY ==
[2023-11-25 13:38] LABS: Calcium, Ionized 5.7 mg/dL (4.7-5.5)
[2023-11-25 17:33] LABS: Calcium, 24 Hr Urine 133 mg/24 h; Calcium/Creatinine Ratio 113 mg/g creat (30-275); Creatinine 24Hr Urine 1.18 g/24 h (0.50-2.15)
== END 2023-11-24 13:14 | disposition home or self-care (01) ==
LOC: HO.LAB 13:13
PROVIDERS: PCP Student in an Organized Health Care Education/Training Program; Visit Provider Nurse Practitioner Adult Health
DX: E83.52 Hypercalcemia (principal)
CPT/HCPCS: 36415; 82330; 82340

== ENCOUNTER 2023-12-12 14:45 | Outpatient (REF) | payer MEDICAID, SELFPAY ==
[2023-12-12 17:06] LABS: MANUAL DIFF FLAG NO
[2023-12-12 17:32] LABS: Basophils Percent Auto 0.4 % (0-2); Eosinophils Absolute Auto 0.1 X10*3/uL (0.0-0.4); Eosinophils Percent Auto 1.1 % (0-4); Hematocrit 33.1 % (37.0-47.0); Hemoglobin 11.3 g/dl (12.0-16.0); Imm Gran Abs Auto 0.03 X10*3/uL (0.00-0.03); Imm Gran Pct Auto 0.3 % (0.0-0.4); Lymphocytes Absolute Auto 3.1 X10*3/uL (1.2-4.9); Lymphocytes Percent Auto 34.9 % (20-40); Mean Corpuscular HGB Conc 34.1 g/dl (31.0-35.0); Mean Corpuscular Hemoglobin 31.7 pg (27.0-33.0); Mean Platelet Volume 12.6 fL (9.4-12.3); Monocytes Absolute Auto 0.6 X10*3/uL (0.1-1.2); Monocytes Percent Auto 6.6 % (2-11); Neutrophils Absolute Auto 5.1 x10*3/uL (2.0-8.3); Neutrophils Percent Auto 56.7 % (45-73); Platelet Count 243 X10*3/uL (160-400); Red Blood Count 3.56 X10*6/uL (4.20-5.50); Red Cell Distribution Width 13.6 % (11.0-16.0)
[2023-12-13 03:43] LABS: Syphilis Screen Nonreactive (Nonreactive)
[2023-12-13 03:44] LABS: ~HepC Num1 0.28 S/CO (0.00-0.79); ~Hepatitis C Antibody Nonreactive (Nonreactive)
[2023-12-14 15:54] LABS: HIV RNA PCR Qn Copies 210 copies/mL (NOT DETECTED); HIV RNA PCR Qn Log Copies 2.32 (NOT DETECTED)
[2023-12-14 20:58] LABS: TS Negative Control Passed; TS Panel A 0; TS Panel B 0; TS Positive Control Passed; TSpotTB Negative (Negative)
[2023-12-15 22:24] LABS: Absolute CD3 Count 2367 cells/uL (840-3060); Absolute CD4 Count 1166 cells/uL (490-1740); Absolute CD8 Count 1200 cells/uL (180-1170); Absolute Lymphocytes 3251 cells/uL (850-3900); CD4 CD8 Ratio 0.97 (0.86-5.00); Percent CD3 Cells 73 % (57-85); Percent CD4 Cells 36 % (30-61); Percent CD8 Cells 37 % (12-42)
== END 2023-12-12 14:46 | disposition home or self-care (01) ==
LOC: HO.CHCLDS 14:45
PROVIDERS: Visit Provider Internal Medicine
DX: B20 Human immunodeficiency virus [HIV] disease (principal)
CPT/HCPCS: 36415; 85025; 86359; 86360; 86481; 86780; 86803; 87536

== ENCOUNTER 2023-12-15 10:34 | Outpatient (REF) | payer MEDICAID, SELFPAY ==
[2023-12-15 15:45] LABS: Albumin Level 4.3 g/dL (3.5-5.0); Calcium 9.6 mg/dL (8.4-10.2)
== END 2023-12-15 10:35 | disposition home or self-care (01) ==
LOC: HO.HHCL 10:34
PROVIDERS: Visit Provider Nurse Practitioner Adult Health
DX: E83.52 Hypercalcemia (principal); B20 Human immunodeficiency virus [HIV] disease
CPT/HCPCS: 36415; 82040; 82310

== ENCOUNTER 2023-12-15 10:38 | Outpatient (REF) | payer MEDICAID, SELFPAY ==
[2023-12-15 15:45] LABS: Alanine Aminotransferase 29 U/L (0-31); Albumin Level 4.3 g/dL (3.5-5.0); Alkaline Phosphatase 76 U/L (39-117); Anion Gap 11 (12-20); Aspartate Amino Transferase 19 U/L (5-31); Bilirubin Total 0.3 mg/dL (0.0-1.0); Blood Urea Nitrogen 25 mg/dL (9-16); Calcium 9.8 mg/dL (8.4-10.2); Carbon Dioxide 21 mmol/L (22-29); Chloride 111 mmol/L (96-108); Cholesterol 193 mg/dL (<200); Estimated Glomerular Filt Rate > 60; Glucose Random 99 mg/dL (60-115); HDL Cholesterol 46 mg/dL (>40); LDL Cholesterol Calculated 127 mg/dL (<100); Potassium 3.8 mmol/L (3.3-5.1); Sodium 139 mmol/L (135-145); Total Protein 7.6 g/dL (6.5-8.0); Triglycerides 100 mg/dL (<150)
[2023-12-15 20:19] LABS: Reflex LDLD? No
== END 2023-12-15 10:39 | disposition home or self-care (01) ==
LOC: HO.HHCL 10:38
PROVIDERS: Visit Provider Internal Medicine
DX: B20 Human immunodeficiency virus [HIV] disease (principal); E83.52 Hypercalcemia
CPT/HCPCS: 36415; 80053; 80061

== ENCOUNTER 2024-03-09 12:35 | Outpatient (AMB) | payer MEDICAID, SELFPAY ==
--- NOTE | 2024-03-09 12:39 | A.OFFVIS_ITS ---
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 She was last seen in November at which time Spironlactone was discontinued. She was taking this for acne. After stopping, calcium returned to normal range. She has since restarted just once daily. First noted to have high calcium [2020]. Currently using Calcium supplement [ no]. Takes Vitamin D daily (no) Kidney stones: [no] Osteoporosis: [no] Has not had a bone density. 2 maternal aunts with osteoporosis, History of [place] use: [no) Biotin use: [no] Family history of high calcium or kidney stones: [no] Renal imaging: [pending] DXA:none prior Labs: 08/11/2002/ [id number] Creatinine Calcium 10.5 H D 10.5 H 10.4 H 25-OH Vitamin D Total PTH Intact 04/24/2305/ 10:4813:4613:26 Creatinine 1.08 Calcium 10.2 10.4 H 10.8 H 25-OH Vitamin D Total 31.5 PTH Intact 37.7 She reports mood changes and hot flashes which did not improve with the addition of Effexor. She has f/u to discuss with her PCP. Reports some fatigue which she believes is associated with not sleeping well. [facility] Medical History Anxiety HIV (human immunodeficiency virus infection) GERD (gastroesophageal reflux disease) HTN (hypertension) PVCs (premature ventricular contractions) Surgical History (Updated 03/23/24 @ 15:32 by JAN Naranjo) Hx of tubal ligation H/O colonoscopy History of section Family History Father Colon cancer Mother Asthma Heart problem Sister No problems noted. 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 Absence of acromegalic features. Neck exam reveals nl size thyroid about 15 gms. No thyroid nodules palpable. Heart S1 S2, Reg R/R. No M/R G. Skin exam reveals absence of vitiligo or acanthosis nigricans. No edema Assessment & Plan Assessment & Plan (1) Hypercalcemia: Code(s): E83.52 - Hypercalcemia Category: Medical Plan: 53-year-old female with a history of hypercalcemia, no history of kidney stones or osteoporosis. Calcium level came back normal when she stopped spironolactone. She is now on half dose and was advised to recheck a level in several months. An order was placed for labs and she was not given a follow up appointment today. Follow up p.r.n. Orders: Orders Parathyroid Hormone Intact 03/09/24 E83.52 - Hypercalcemia Calcium 03/09/24 E83.52 - Hypercalcemia Coding Level of Care Code Est Pt Level 3 (02833) Diagnoses Hypercalcemia E83.52 Time Spent (min) 20 Comment Time spent reviewing labs/provider notes, face to face, chart doc
[2024-03-09 12:43] VITALS: BP 100/60; PULSE 75; BMI 25.4
== END 2024-03-09 13:48 | disposition home or self-care (01) ==
PROVIDERS: PCP Student in an Organized Health Care Education/Training Program; Visit Provider Nurse Practitioner Adult Health
DX: E83.52 Hypercalcemia (principal)
CPT/HCPCS: 99213

== ENCOUNTER → 2024-03-09 12:35 | Outpatient (BNVA) | payer MEDICAID, SELFPAY | PROVIDERS: PCP Student in an Organized Health Care Education/Training Program; Visit Provider Nurse Practitioner Adult Health | DX: E83.52 Hypercalcemia (principal) | CPT/HCPCS: 99212 ==

== ENCOUNTER → 2024-03-23 14:57 | Outpatient (AMB) | payer MEDICAID, SELFPAY ==
--- NOTE | 2024-03-23 15:02 | A.OFFVIS_ITS ---
Vital Signs 03/23/24 15:09 Height 5 ft 3 in Weight 145 lb 15.136 oz BMI 25.9 BP 125/71 Blood Pressure Location Lt brachial Position Sitting Pulse 83 Intake Visit Reasons: 6 months follow up Intake Note: Lupe presents in 6 months follow up of GERD and constipation. CC: Patient reports doing well from GI standpoint. She only report neck pain. 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 Accompanied by: Self / Same As Patient Allergies amoxicillin Allergy (Intermediate, Verified 03/23/24 15:21) Hives blackberry Allergy (Intermediate, Verified 03/23/24 15:21) Rash clindamycin Allergy (Intermediate, Verified 03/23/24 15:21) Hives HPI HPI 6 months follow up: Details: Assessment & Plan (1) GERD (gastroesophageal reflux disease): Code(s): K21.9 - Gastro-esophageal reflux disease without esophagitis (2) Constipation: Code(s): K59.00 - Constipation, unspecified (3) Abdominal bloating: Code(s): R14.0 - Abdominal distension (gaseous) Plan She has been taking the omeprazole twice a day because she was having some breakthrough heartburn later in the day. Obviously this is fine. She also continues on her Dulcolax and Colace which are moving her bowels well and simethicone for bloating with good relief. She will be traveling to [facility] soon because her daughter is about to give ! Return office visit in 6 months. Medications: Changed From omeprazole 20 mg PO DAILY 30 days 30 caps 6RF To omeprazole 20 mg PO BID 30 days 60 caps 6RF Refilled simethicone (Gas Relief (simethicone)) 180 mg PO QID 30 days PRN 120 caps 6RF abdominal distention R14.0 - Abdominal distension (gaseous) docusate sodium 100 mg PO BID 60 caps 6RF K59.00 - Constipation, unspecified bisacodyl (Dulcolax (bisacodyl)) 10 mg (2 x 5 mg) PO BEDTIME 90 days 180 tabs 3RF K59.00 - Constipation, unspecified TODAYS VISIT She is a grandmother to a baby boy! She continues to do well on her GI regimen. She continues on omeprazole 20 mg twice a day, bisacodyl, Colace, and Dulcolax. Return office visit in 6 months [facility] Medical History Anxiety HIV (human immunodeficiency virus infection) GERD (gastroesophageal reflux disease) HTN (hypertension) PVCs (premature ventricular contractions) Surgical History (Updated 03/23/24 @ 15:32 by JAN Naranjo) Hx of tubal ligation H/O colonoscopy History of section Family History Father Colon cancer Mother Asthma Heart problem Sister No problems noted. 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 Review of Systems Const Denies fatigue, Denies fever(s), Denies night sweats, Denies poor appetite and Denies weight loss ENT Reports Normal hearing present, Denies dental pain, Denies dysphagia, Denies hearing loss, Denies mouth pain, Denies odynophagia, Denies throat swelling, Denies tongue swelling and Reports other (Dentition adequate) Card Reports no additional complaints Resp Reports no additional complaints GI Details: Denies abdominal pain, Denies melena, Reports bloating, Denies hematochezia, Reports constipation, Denies GI cramping, Denies dysphagia, Denies excessive flatus, Denies early satiety, Reports heartburn, Denies diarrhea, Denies nausea, Denies odynophagia, Denies vomiting and Denies hematemesis Skin/Breast Denies pruritus, Denies lesions, Denies rash and Denies jaundice Neuro Reports Normal hearing present and Denies Abnormal speech present Endo Denies fatigue Aller/Immun Denies throat swelling and Denies tongue swelling Physical Exam Vital Signs: Last Vital Signs Pulse 83 03/23/24 15:09 BP 125/71 03/23/24 15:09 BMI result Body Mass Index 25.9 Const General: cooperative, no acute distress, well developed and well groomed Nutritional Appearance: average body habitus and well nourished Orientation/consciousness: oriented to person, oriented to place and oriented to time Limitations: No language barrier HEENT Head: Yes normocephalic and Yes atraumatic Eyes General: appearance normal, both eyes and all related structures Pupils: Equal, round and reactive pupils present Neck Neck: Yes normal visual inspection and Yes no lymphadenopathy Thyroid: Thyroid normal Resp Effort & Inspection: normal respiratory effort and able to speak in complete sentences Auscultation: clear to auscultation bilaterally Cardio Rate: regular rate Rhythm: regular rhythm Heart sounds: Normal, physiologic split S2 sound present Peripheral pulses: radial pulses present and posterior tibial pulses present GI Inspection: No distended and No Abdominal panniculus present Palpation (GI): Soft to palpation, nontender, no guarding, not rigid and No hepatosplenomegaly present Percussion: Yes normal to percussion Auscultation: normal bowel sounds Rectal Exam - Female: deferred Skin General skin exam: no rashes or lesions noted, turgor normal, skin not dry, no jaundice, No spider nevi and no striae Rashes: no rashes Nails: normal Neuro General: oriented to person, oriented to place and oriented to time Cranial nerves: Yes Equal, round and reactive pupils present and Yes Normal hearing present Speech: No Abnormal speech present Extrem General: Yes normal to inspection, No clubbing, No cyanosis and No edema Psych Appearance: grossly normal and well kempt Mental Status: mental status grossly normal Speech and movement: Normal speech and movement present Affect: normal affect Attitude: cooperative Thought process: Normal thought process present and not confabulating Thought content: Normal thought content present Insight: Good insight present (Psych) Judgement: Good judgement present (Psych) Assessment & Plan Assessment & Plan (1) GERD (gastroesophageal reflux disease): Code(s): K21.9 - Gastro-esophageal reflux disease without esophagitis Category: Medical (2) Abdominal bloating: Code(s): R14.0 - Abdominal distension (gaseous) Category: Medical (3) Constipation: Code(s): K59.00 - Constipation, unspecified Category: Medical (4) Family history of colon cancer in father: Comment: Age 70-80 Code(s): Z80.0 - Family history of malignant neoplasm of digestive organs Category: Medical Plan She is a grandmother to a baby boy! She continues to do well on her GI regimen. She continues on omeprazole 20 mg twice a day, bisacodyl, Colace, and Dulcolax. Return office visit in 6 months Medications: Refilled docusate sodium 100 mg PO BID 60 caps 6RF K59.00 - Constipation, unspecified omeprazole 20 mg PO BID 60 caps 6RF 30 days bisacodyl (Dulcolax (bisacodyl)) 10 mg (2 x 5 mg) PO BEDTIME 180 tabs 3RF 90 days K59.00 - Constipation, unspecified simethicone (Gas Relief (simethicone)) 180 mg PO QID PRN 120 caps 6RF abdominal distention 30 days R14.0 - Abdominal distension (gaseous) Coding Level of Care Code Est Pt Level 3 (98846) Diagnoses GERD (gastroesophageal reflux disease) K21.9 Abdominal bloating R14.0 Constipation K59.00 Family history of colon cancer in father Z80.0
[2024-03-23 15:09] VITALS: BP 125/71; PULSE 83; BMI 25.9
== END ==
PROVIDERS: PCP Student in an Organized Health Care Education/Training Program; Visit Provider Nurse Practitioner
DX: K21.9 Gastro-esophageal reflux disease without esophagitis (principal); R14.0 Abdominal distension (gaseous); K59.00 Constipation, unspecified; Z80.0 Family history of malignant neoplasm of digestive organs
CPT/HCPCS: 99213

== ENCOUNTER → 2024-03-23 14:57 | Outpatient (BNVA) | payer MEDICAID, SELFPAY | PROVIDERS: PCP Student in an Organized Health Care Education/Training Program; Visit Provider Nurse Practitioner | DX: K21.9 Gastro-esophageal reflux disease without esophagitis (principal); K59.00 Constipation, unspecified; R14.0 Abdominal distension (gaseous); Z80.0 Family history of malignant neoplasm of digestive organs | CPT/HCPCS: 99212 ==

== ENCOUNTER 2024-04-15 14:51 | Outpatient (REF) | payer MEDICAID, SELFPAY ==
[2024-04-15 17:42] LABS: MANUAL DIFF FLAG NO
[2024-04-15 17:53] LABS: Basophils Percent Auto 0.3 % (0-2); Eosinophils Absolute Auto 0.2 X10*3/uL (0.0-0.4); Eosinophils Percent Auto 1.8 % (0-4); Hematocrit 36.9 % (37.0-47.0); Hemoglobin 12.4 g/dl (12.0-16.0); Imm Gran Abs Auto 0.03 X10*3/uL (0.00-0.03); Imm Gran Pct Auto 0.3 % (0.0-0.4); Lymphocytes Absolute Auto 3.5 X10*3/uL (1.2-4.9); Lymphocytes Percent Auto 38.6 % (20-40); Mean Corpuscular HGB Conc 33.6 g/dl (31.0-35.0); Mean Corpuscular Hemoglobin 30.9 pg (27.0-33.0); Mean Platelet Volume 12.8 fL (9.4-12.3); Monocytes Absolute Auto 0.7 X10*3/uL (0.1-1.2); Monocytes Percent Auto 7.3 % (2-11); Neutrophils Absolute Auto 4.7 x10*3/uL (2.0-8.3); Neutrophils Percent Auto 51.7 % (45-73); Platelet Count 271 X10*3/uL (160-400); Red Blood Count 4.01 X10*6/uL (4.20-5.50); Red Cell Distribution Width 14.8 % (11.0-16.0)
[2024-04-15 17:54] LABS: Appearance Urine Clear; Color Urine Yellow; Glucose Urine UA Negative (Negative); Leukocyte Esterase Urine Negative (Negative); Nitrite Urine Negative (Negative); PH 5.5 (5.0-9.0); Specific Gravity - Urine 1.025 (1.005-1.025); Urine Blood Negative (Negative); Urine Ketones Negative (Negative); Urine Protein Negative (Neg-Trace)
[2024-04-15 18:02] LABS: Alanine Aminotransferase 41 U/L (0-31); Albumin Level 4.4 g/dL (3.5-5.0); Alkaline Phosphatase 78 U/L (39-117); Anion Gap 10 (12-20); Aspartate Amino Transferase 30 U/L (5-31); Bilirubin Total 0.2 mg/dL (0.0-1.0); Blood Urea Nitrogen 28 mg/dL (9-16); Calcium 9.6 mg/dL (8.4-10.2); Carbon Dioxide 22 mmol/L (22-29); Chloride 112 mmol/L (96-108); Estimated Glomerular Filt Rate 58; Glucose Random 96 mg/dL (60-115); Potassium 3.9 mmol/L (3.3-5.1); Sodium 140 mmol/L (135-145)
[2024-04-17 07:48] LABS: HIV RNA PCR Qn Copies 185 copies/mL (NOT DETECTED); HIV RNA PCR Qn Log Copies 2.27 (NOT DETECTED)
[2024-04-21 00:08] LABS: Absolute CD3 Count 2504 cells/uL (840-3060); Absolute CD4 Count 1178 cells/uL (490-1740); Absolute CD8 Count 1243 cells/uL (180-1170); Absolute Lymphocytes 3600 cells/uL (850-3900); CD4 CD8 Ratio 0.95 (0.86-5.00); Percent CD3 Cells 70 % (57-85); Percent CD4 Cells 33 % (30-61); Percent CD8 Cells 35 % (12-42)
== END 2024-04-15 14:52 | disposition home or self-care (01) ==
LOC: HO.CHCLDS 14:51
PROVIDERS: Visit Provider Internal Medicine
DX: Z21 Asymptomatic human immunodeficiency virus [HIV] infection status (principal)
CPT/HCPCS: 36415; 80053; 81003; 85025; 86359; 86360; 87536

== ENCOUNTER 2024-04-20 14:28 | Outpatient (REF) | payer MEDICAID, SELFPAY ==
[2024-04-21 11:47] LABS: HPV 16,18/45 See PAP report
[2024-04-21 13:56] LABS: HPV 16,18/45 See PAP report
[2024-04-29 01:18] LABS: HPV MRNA E6/E7 Rectal NOT DETECTED
== END 2024-04-20 14:29 | disposition home or self-care (01) ==
LOC: HO.HHCLNP 14:28
PROVIDERS: Visit Provider Family Medicine
DX: B20 Human immunodeficiency virus [HIV] disease (principal); Z12.4 Encounter for screening for malignant neoplasm of cervix
CPT/HCPCS: 36415; 87624; 88112; 88175

== ENCOUNTER 2024-08-27 10:54 | Outpatient (REF) | payer MEDICAID, SELFPAY | END 2024-08-27 10:55 | disposition home or self-care (01) | LOC: HO.MAMMO 10:54 | PROVIDERS: PCP Student in an Organized Health Care Education/Training Program; Visit Provider Student in an Organized Health Care Education/Training Program | DX: Z12.31 Encounter for screening mammogram for malignant neoplasm of breast (principal) | CPT/HCPCS: 77063; 77067 ==

== ENCOUNTER → 2024-08-27 11:15 | Outpatient (BNV) | payer MEDICAID, SELFPAY | PROVIDERS: PCP Student in an Organized Health Care Education/Training Program; Visit Provider Internal Medicine | DX: Z12.31 Encounter for screening mammogram for malignant neoplasm of breast (principal) | CPT/HCPCS: 77063; 77067 ==

== ENCOUNTER 2024-11-10 12:40 | Outpatient (REF) | payer MEDICAID, SELFPAY ==
[2024-11-10 14:20] LABS: MANUAL DIFF FLAG NO
[2024-11-10 14:23] LABS: Basophils Percent Auto 0.3 % (0-2); Eosinophils Absolute Auto 0.2 X10*3/uL (0.0-0.4); Hematocrit 34.4 % (37.0-47.0); Hemoglobin 11.6 g/dl (12.0-16.0); Imm Gran Abs Auto 0.04 X10*3/uL (0.00-0.03); Imm Gran Pct Auto 0.5 % (0.0-0.4); Lymphocytes Absolute Auto 3.4 X10*3/uL (1.2-4.9); Lymphocytes Percent Auto 39.5 % (20-40); Mean Corpuscular HGB Conc 33.7 g/dl (31.0-35.0); Mean Corpuscular Hemoglobin 29.5 pg (27.0-33.0); Mean Corpuscular Volume 87.5 fL (80.0-98.0); Mean Platelet Volume 12.3 fL (9.4-12.3); Monocytes Absolute Auto 0.5 X10*3/uL (0.1-1.2); Monocytes Percent Auto 5.8 % (2-11); Neutrophils Absolute Auto 4.5 x10*3/uL (2.0-8.3); Neutrophils Percent Auto 51.9 % (45-73); Platelet Count 304 X10*3/uL (160-400); Red Blood Count 3.93 X10*6/uL (4.20-5.50); Red Cell Distribution Width 14.2 % (11.0-16.0); White Blood Count 8.7 X10*3/uL (4.8-10.8)
[2024-11-10 15:44] LABS: Alanine Aminotransferase 30 U/L (0-31); Albumin Level 4.4 g/dL (3.5-5.0); Alkaline Phosphatase 84 U/L (39-117); Anion Gap 12 (12-20); Aspartate Amino Transferase 23 U/L (5-31); Bilirubin Total 0.3 mg/dL (0.0-1.0); Blood Urea Nitrogen 30 mg/dL (9-16); Carbon Dioxide 21 mmol/L (22-29); Chloride 113 mmol/L (96-108); Estimated Glomerular Filt Rate 47; Glucose Random 118 mg/dL (60-115); Potassium 3.8 mmol/L (3.3-5.1); Sodium 142 mmol/L (135-145); Total Protein 8.1 g/dL (6.5-8.0)
[2024-11-11 04:47] LABS: HBS Num1 25.08 mIU/mL (0-7.99); HBc Num1 0.22 S/CO (0.00-0.79); HBsAGNum1 0.36 S/CO (0.00-0.99); Hepatitis B Core Antibody Nonreactive (Nonreactive); Hepatitis B Surface Antigen Negative (Negative); ~Hepatitis B Surface Antibody REACTIVE (Nonreactive)
[2024-11-11 15:18] LABS: HIV RNA PCR Qn Copies 434 copies/mL (NOT DETECTED); HIV RNA PCR Qn Log Copies 2.64 (NOT DETECTED)
[2024-11-12 05:27] LABS: Hepatitis A Antibody IgG REACTIVE (Nonreactive); ~Hepatitis A Antibody IgG 6.71 S/CO (0.00-0.99)
[2024-11-14 18:58] LABS: Absolute CD3 Count 2246 cells/uL (840-3060); Absolute CD4 Count 1106 cells/uL (490-1740); Absolute CD8 Count 1079 cells/uL (180-1170); Absolute Lymphocytes 3358 cells/uL (850-3900); CD4 CD8 Ratio 1.02 (0.86-5.00); Percent CD3 Cells 67 % (57-85); Percent CD4 Cells 33 % (30-61); Percent CD8 Cells 32 % (12-42)
== END 2024-11-10 12:41 | disposition home or self-care (01) ==
LOC: HO.CHCLDS 12:40
PROVIDERS: Visit Provider Internal Medicine
DX: Z21 Asymptomatic human immunodeficiency virus [HIV] infection status (principal)
CPT/HCPCS: 36415; 80053; 85025; 86359; 86360; 86704; 86706; 86708; 87340; 87536

== ENCOUNTER 2025-03-21 10:31 | Outpatient (REF) | payer MEDICAID, SELFPAY ==
[2025-03-21 14:18] LABS: MANUAL DIFF FLAG NO
[2025-03-21 14:28] LABS: Hematocrit 37.5 % (37.0-47.0); Hemoglobin 11.9 g/dl (12.0-16.0); Imm Gran Abs Auto 0.02 X10*3/uL (0.00-0.03); Imm Gran Pct Auto 0.3 % (0.0-0.4); Lymphocytes Absolute Auto 3.6 X10*3/uL (1.2-4.9); Mean Corpuscular HGB Conc 31.7 g/dl (31.0-35.0); Mean Corpuscular Hemoglobin 29.8 pg (27.0-33.0); Mean Corpuscular Volume 94.0 fL (80.0-98.0); NRBC Abs Auto 0.000 X10*3/uL (0.0-0.012); NRBC Pct Auto 0.0 /100WBC (0.0-0.2); Platelet Count 209 X10*3/uL (160-400); Red Blood Count 3.99 X10*6/uL (4.20-5.50); White Blood Count 7.7 X10*3/uL (4.8-10.8)
[2025-03-21 14:35] LABS: Alanine Aminotransferase 44 U/L (0-31); Albumin Level 4.5 g/dL (3.5-5.0); Alkaline Phosphatase 83 U/L (39-117); Anion Gap 14 (12-20); Aspartate Amino Transferase 39 U/L (5-31); Blood Urea Nitrogen 20 mg/dL (9-16); Calcium 9.6 mg/dL (8.4-10.2); Carbon Dioxide 21 mmol/L (22-29); Chloride 111 mmol/L (96-108); Cholesterol 159 mg/dL (<200); Estimated Glomerular Filt Rate > 60; HDL Cholesterol 46 mg/dL (>40); Potassium 3.8 mmol/L (3.3-5.1); Sodium 142 mmol/L (135-145); Total Protein 7.6 g/dL (6.5-8.0); Triglycerides 77 mg/dL (<150)
[2025-03-21 14:37] LABS: Hemoglobin A1C 120.4988 umol/L
[2025-03-21 15:46] LABS: Reflex LDLD? No
[2025-03-22 04:30] LABS: ~HepC Num1 0.17 S/CO (0.00-0.79); ~Hepatitis C Antibody Nonreactive (Nonreactive)
[2025-03-22 21:59] LABS: HIV RNA PCR Qn Copies 46 copies/mL (NOT DETECTED); HIV RNA PCR Qn Log Copies 1.66 (NOT DETECTED)
[2025-03-23 22:33] LABS: TS Negative Control Passed; TS Panel A 0; TS Panel B 0; TS Positive Control Passed; TSpotTB Negative (Negative)
[2025-03-26 15:59] LABS: Absolute CD3 Count 2562 cells/uL (840-3060); Absolute CD8 Count 1382 cells/uL (180-1170); Percent CD3 Cells 64 % (57-85); Percent CD8 Cells 35 % (12-42)
== END 2025-03-21 10:32 | disposition home or self-care (01) ==
LOC: HO.CHCLDS 10:31
PROVIDERS: Visit Provider Internal Medicine
DX: Z11.1 Encounter for screening for respiratory tuberculosis (principal); Z11.59 Encounter for screening for other viral diseases; Z21 Asymptomatic human immunodeficiency virus [HIV] infection status
CPT/HCPCS: 36415; 80053; 80061; 83036; 85025; 86359; 86360; 86481; 86592; 86803; 87536

== ENCOUNTER 2025-03-29 08:56 | Emergency (ER) | payer MEDICAID, SELFPAY ==
--- NOTE | ~2025-03-29 | XR_ITS ---
EXAMINATION: XR HIP, RIGHT CLINICAL INFORMATION: HIP PAIN COMPARISON: None available. TECHNIQUE: AP pelvis, and 2 views of the right hip. FINDINGS: There is no fracture, dislocation, or suspicious bone lesion. There is normal alignment. Joint spaces are maintained. No significant arthropathy. Normal acetabular coverage. Normal femoral head contour without evidence of AVN. Normal-appearing soft tissues. XR/XR hip RT w PEL1V IMPRESSION: Normal right hip. Electronically signed by: Alejandro Fairbanks MD 03/29/2025 09:35 AM EDT
[2025-03-29 09:09] VITALS: BP 156/70; PULSE 75; RESP 18; TEMP 36; O2SAT 98; BMI 25.2
--- NOTE | 2025-03-29 13:12 | ED.GENADULT ---
HPI - General Adult General Chief complaint: Extremity Injury, Lower Stated complaint: R hip pain Time Seen by Provider: 03/29/25 13:04 Source: patient, RN notes reviewed and old records reviewed Mode of arrival: ambulatory Limitations: no limitations History of Present Illness ED Provider: GERSON Augustine HPI narrative: 54-year-old female with medical history of GERD, constipation, HIV on ART, HTN, hypercalcemia, presents to the ED due to right hip pain. Patient states she had a mechanical fall approximately 3 months ago where she tripped and fell onto the right hip causing pain, however has been improving. Patient states approximately 1 week ago while she was cleaning and changing rugs around her home she noticed dull aching right hip pain that night. Patient states pain has been worsening over the last few days and has been taking ibuprofen and tylenol with mild relief. Denies radicular symptoms. MD complaint: R hip pain Related Data Home Medications ?Medication ?Instructions ?Recorded ?Confirmed bictegravir 50 mg-emtricitabine 1 tab PO DAILY 11/02/21 11/02/21 200 mg-tenofovir alafenam 25 mg tablet (Biktarvy) lisinopril 10 mg tablet 1 tab PO DAILY 11/02/21 11/02/21 loratadine 10 mg tablet 1 tab PO DAILY 11/02/21 11/02/21 spironolactone 100 mg tablet 1 tab PO DAILY acne 11/02/21 11/02/21 albuterol sulfate 90 mcg/actuation 2 puff inhalation Q4H PRN wheezing 11/21/23 aerosol inhaler (Ventolin HFA) venlafaxine 37.5 mg 37.5 mg PO DAILY 11/21/23 capsule,extended release 24 hr Previous Rx's ?Medication ?Instructions ?Recorded naproxen 500 mg tablet 500 mg PO BID #60 tabs 11/14/23 bisacodyl 5 mg tablet,delayed 10 mg (2 x 5 mg) PO BEDTIME 90 03/23/24 release (Dulcolax (bisacodyl)) days #180 tabs docusate sodium 100 mg capsule 100 mg PO BID #60 caps 03/23/24 omeprazole 20 mg capsule,delayed 20 mg PO BID 30 days #60 caps 03/23/24 release simethicone 180 mg capsule (Gas 180 mg PO QID PRN abdominal 03/23/24 Relief (simethicone)) distention 30 days #120 caps cyclobenzaprine 5 mg tablet 5 mg PO TID PRN muscle spasm #15 03/29/25 tabs ketorolac 10 mg tablet 10 mg PO Q8H PRN pain 3 days #9 03/29/25 tabs Allergies Allergy/AdvReac Type Severity Reaction Status Date / Time amoxicillin Allergy Intermediate Hives Verified 03/29/25 09:10 blackberry Allergy Intermediate Rash Verified 03/29/25 09:10 clindamycin Allergy Intermediate Hives Verified 03/29/25 09:10 [facility] Past Medical History Attestation statement: The following information was validated with the patient. Source: old records reviewed and nursing notes reviewed Medical History (Updated 03/29/25 @ 13:29 by Juanjo Augustine PA-C) Anxiety HIV (human immunodeficiency virus infection) GERD (gastroesophageal reflux disease) HTN (hypertension) PVCs (premature ventricular contractions) Surgical History (Updated 03/23/24 @ 15:32 by JAN Naranjo) Hx of tubal ligation H/O colonoscopy History of section Family History Family History Father Colon cancer Mother Asthma Heart problem Sister No problems noted. 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 HEENT: ?NC, AT. MMM. EOMI, clear conjunctiva, oropharynx clear. NECK: ?Supple without lymphadenopathy.? No stiffness or restricted ROM. HEART:? Normal rate and regular rhythm, normal S1/S2, no m/r/g LUNGS:? CTAB, moving air well. No crackles or wheezes are heard. EXTREMITIES: ?Without cyanosis, clubbing or edema. TTP over R SI joint, no trochanter pain, no Lumbar paraspinal tenderness, no midline spinal tenderness or bony step offs palpated. ROM intact, SILT, patient ambulating without antalgic gait. NEUROLOGICAL: ?Grossly nonfocal. Alert and oriented, moving all 4 extremities. Observed to ambulate with normal gait. Skin: ?Warm and dry without any rash. Medications Administered Discontinued Medications Generic Name Dose Route Start Last Admin Trade Name Steve PRN Reason Stop Dose Admin Acetaminophen 650 mg 03/29/25 09:13 03/29/25 09:17 Acetaminophen 325 Mg Tablet PO 03/29/25 09:14 650 mg ONCE ONE Administration Medical Decision Making Medical Decision Making [facility] Narrative: 54-year-old female with medical history of GERD, constipation, HIV on ART, HTN, hypercalcemia, presents to the ED due to right hip pain. Patient states she had a mechanical fall approximately 3 months ago where she tripped and fell onto the right hip causing pain, however has been improving. Patient states approximately 1 week ago while she was cleaning and changing rugs around her home she noticed dull aching right hip pain that night. Patient states pain has been worsening over the last few days and has been taking ibuprofen and tylenol with mild relief. Denies radicular symptoms. VS on initial observation-BP 156/70, pulse rate of 75, respiratory rate of 18, afebrile with oral temp of 96.8?, O2 saturation 98% on room air. On physical exam patient has tenderness surrounding the right-sided SI joint, no pain to palpation over the greater trochanter of the right hip, no Lumbar paraspinal tenderness, no midline spinal tenderness or bony step offs palpated. ROM intact, SILT, patient ambulating without antalgic gait XR R hip/pelvis is negative for fracture or dislocation Patient received 650 mg of Tylenol while in waiting room, is being medicated with 30 mg IM Toradol for pain management. Patient with right-sided pain over the SI joint, without anatomical abnormalities palpated within this area, no tenderness over the greater trochanter, no lumbar paraspinal tenderness, no midline spinal tenderness, no bony step-offs palpated, full ROM of lumbar spine and of R hip. Patient able to bear weight and ambulate without antalgic gait. Patient was given 650mg of tylenol while in the waiting room which she states improved pain. Patient's symptoms most likely due to musculoskeletal pain, patient is afebrile, no history of IVDU. Patient will be discharged with 5 day of Flexeril, 3 days of Toradol for pain management. I counseled patient to follow up with her primary care doctor. I counseled patient on strict return precautions. Patient well enough to go home for self-care. Patient is in agreement with the plan. Differential Diagnosis Differential Diagnoses: The differential diagnosis associated with the presentation includes Avascular necrosis of right hip Hip fracture Hip dislocation Osteoarthritis of right hip Sciatica Admission/Observation Consideration of admission/observation: Escalation of care including admission/observation considered Independent Interpretation I performed an independent interpretation of an: Plain X-Ray Interpretation: I independently interpreted the XR R hip/pelvis which was negative for fracture, dislocation or osteoarthritic changes, I agree with the radiologist's interpretation Radiology Impression Discussion of test interpretation with radiology: I have reviewed the radiologist's reading. Radiologist Impression: XR R hip/pelvis FINDINGS: There is no fracture, dislocation, or suspicious bone lesion. There is normal alignment. Joint spaces are maintained. No significant arthropathy. Normal acetabular coverage. Normal femoral head contour without evidence of AVN. Normal-appearing soft tissues. XR/XR hip RT w PEL1V IMPRESSION: Normal right hip. Electronically signed by: Alejandro Fairbanks MD 03/29/2025 09:35 AM EDT Dictated By: Alejandro Fairbanks MD Signed By: <Electronically signed by Alejandro Fairbanks MD in OV> 03/29/25 0935 External Record Review External record reviewed: Inpatient record, Office record and Outpatient record Chronic Conditions Patient?s care impacted by: Hypertension and Other (GERD, constipation, HIV,) Social Determinants Patient?s care significantly limited by Social Determinants of Health including: Other Social Determinant of Health Discharge Plan Discharge Clinical Impression: Muscle spasm Patient Disposition: Home, Self-Care Additional Instructions: You were evaluated in the ED due to right hip pain. The x-ray of the right hip and pelvis was negative for fracture or dislocation. Your physical exam was reassuring as you have full range of motion, are able to bear weight and walk on the L hip. While in the department you were medicated with 30 mg IM Toradol, 650 mg of oral Tylenol for pain management. Your pain is most likely due to musculoskeletal strain. You are being prescribed 5 days of Flexeril which is a muscle relaxer, and 3 days of Toradol which is a strong NSAID. While taking Toradol, you can take 500 mg of Tylenol every 6 hours for additional pain management. While taking Toradol do not take any other NSAID medications such as ibuprofen, Motrin, Aleve, Naprosyn, or any other NSAID medications. Additionally, you can ice this area. Please follow up with your primary care doctor to ensure resolution of your symptoms. Please return to the emergency department if you experience worsening right hip pain, inability to bear weight on the hip, inability to walk, or any new/worsening/concerning symptoms. Prescriptions: New cyclobenzaprine 5 mg tablet 5 mg PO TID PRN (Reason: muscle spasm) Qty: 15 0RF ketorolac 10 mg tablet 10 mg PO Q8H PRN (Reason: pain) 3 Days Qty: 9 0RF Rx Instructions: maximum total duration of 5 days from all oral, intranasal, or parenteral formulations PT given 30 mg IM toradol while in department for pain management No Action naproxen 500 mg tablet 500 mg PO BID Qty: 60 3RF spironolactone 100 mg tablet 1 tab PO DAILY lisinopril 10 mg tablet 1 tab PO DAILY loratadine 10 mg tablet 1 tab PO DAILY Biktarvy 50-200-25 mg tablet 1 tab PO DAILY omeprazole 20 mg capsule,delayed release(DR/EC) 20 mg PO BID 30 Days Qty: 60 6RF bisacodyl [Dulcolax (bisacodyl)] 5 mg tablet,delayed release (DR/EC) 10 mg PO BEDTIME 90 Days Qty: 180 3RF simethicone [Gas Relief (simethicone)] 180 mg capsule 180 mg PO QID PRN (Reason: abdominal distention) 30 Days Qty: 120 6RF docusate sodium 100 mg capsule 100 mg PO BID Qty: 60 6RF venlafaxine 37.5 mg capsule,extended release 24hr 37.5 mg PO DAILY albuterol sulfate [Ventolin HFA] 90 mcg/actuation HFA aerosol inhaler 2 puff inhalation Q4H PRN (Reason: wheezing) Print Language: Maori
[2025-03-29 14:29] VITALS: BP 156/70; PULSE 75; RESP 18; TEMP 36; O2SAT 98
== END 2025-03-29 14:29 | disposition home or self-care (01) ==
PROVIDERS: Emergency Provider Emergency Medicine; PCP Student in an Organized Health Care Education/Training Program
DX: M62.838 Other muscle spasm (principal); M25.551 Pain in right hip; I10 Essential (primary) hypertension; K21.9 Gastro-esophageal reflux disease without esophagitis
CPT/HCPCS: 73502; 96372; 99283; 99284; J1885

== ENCOUNTER → 2025-03-29 09:29 | Outpatient (BNV) | payer MEDICAID, SELFPAY | PROVIDERS: PCP Student in an Organized Health Care Education/Training Program; Visit Provider Radiology Diagnostic Radiology | DX: M25.551 Pain in right hip (principal) | CPT/HCPCS: 73502 ==

== ENCOUNTER 2025-04-07 10:39 | Outpatient (AMB) | payer MEDICAID, SELFPAY ==
--- NOTE | 2025-04-07 10:43 | A.OFFVIS_ITS ---
Vital Signs 04/07/25 10:45 Height 5 ft 3 in Weight 142 lb BMI 25.2 BP 112/76 Blood Pressure Location Rt brachial Position Sitting Pulse 98 Pulse Source Pulse Oximeter Pulse Oximetry (%) 99 Oxygen Delivery Method Room Air Intake Visit Reasons: Follow up Meds Intake Note: Est pt for mgmt of GERD + CIC. CC: Pt denies any new GI concerns or sx at this time. Needs refill of PPI. 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 Required: No Accompanied by: Self / Same As Patient Allergies amoxicillin Allergy (Intermediate, Verified 03/29/25 09:10) Hives blackberry Allergy (Intermediate, Verified 03/29/25 09:10) Rash clindamycin Allergy (Intermediate, Verified 03/29/25 09:10) Hives HPI HPI Follow up Meds: Details: Assessment & Plan (1) GERD (gastroesophageal reflux disease): Code(s): K21.9 - Gastro-esophageal reflux disease without esophagitis Category: Medical (2) Abdominal bloating: Code(s): R14.0 - Abdominal distension (gaseous) Category: Medical (3) Constipation: Code(s): K59.00 - Constipation, unspecified Category: Medical (4) Family history of colon cancer in father: Comment: Age 70-80 Code(s): Z80.0 - Family history of malignant neoplasm of digestive organs Category: Medical Plan She is a grandmother to a baby boy! She continues to do well on her GI regimen. She continues on omeprazole 20 mg twice a day, bisacodyl, Colace, and Dulcolax. Return office visit in 6 months Medications: Refilled docusate sodium 100 mg PO BID 60 caps 6RF K59.00 - Constipation, unspecified omeprazole 20 mg PO BID 60 caps 6RF 30 days bisacodyl (Dulcolax (bisacodyl)) 10 mg (2 x 5 mg) PO BEDTIME 180 tabs 3RF 90 days K59.00 - Constipation, unspecified simethicone (Gas Relief (simethicone)) 180 mg PO QID PRN 120 caps 6RF abdominal distention 30 days R14.0 - Abdominal distension (gaseous) [facility] VISIT [facility] Medical History Anxiety HIV (human immunodeficiency virus infection) GERD (gastroesophageal reflux disease) HTN (hypertension) PVCs (premature ventricular contractions) Surgical History Hx of tubal ligation H/O colonoscopy History of section Family History Father Colon cancer Mother Asthma Heart problem Sister No problems noted. 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 Review of Systems Const Denies fatigue, Denies fever(s), Denies night sweats, Denies poor appetite and Denies weight loss Eyes Reports requires corrective lenses ENT Reports Normal hearing present, Denies dental pain, Denies dysphagia, Denies hearing loss, Denies mouth pain, Denies odynophagia, Denies throat swelling, Denies tongue swelling and Reports other (Dentition adequate) GI Details: Denies abdominal pain, Denies melena, Denies bloating, Denies hematochezia, Denies constipation, Denies GI cramping, Denies dysphagia, Denies excessive flatus, Denies early satiety, Denies heartburn, Denies diarrhea, Denies nausea, Denies odynophagia, Denies vomiting and Denies hematemesis Skin/Breast Denies pruritus, Denies lesions, Denies rash and Denies jaundice Neuro Reports Normal hearing present and Denies Abnormal speech present Endo Denies fatigue Aller/Immun Denies throat swelling and Denies tongue swelling Physical Exam Vital Signs: Last Vital Signs Pulse 98 04/07/25 10:45 BP 112/76 04/07/25 10:45 Pulse Ox 99 04/07/25 10:45 Oxygen Delivery Method Room Air 04/07/25 10:45 BMI result Body Mass Index 25.2 Const General: cooperative, no acute distress, well developed and well groomed Nutritional Appearance: well nourished, obese and overweight Orientation/consciousness: oriented to person, oriented to place and oriented to time Limitations: No language barrier, ambulation with cane, ambulation with walker and wheelchair HEENT Head: Yes normocephalic and Yes atraumatic Eyes General: appearance normal, both eyes and all related structures Pupils: Equal, round and reactive pupils present Neck Neck: Yes normal visual inspection and Yes no lymphadenopathy Thyroid: Thyroid normal Resp Effort & Inspection: normal respiratory effort and able to speak in complete sentences Auscultation: clear to auscultation bilaterally Cardio Rate: regular rate Rhythm: regular rhythm Heart sounds: Normal, physiologic split S2 sound present Peripheral pulses: radial pulses present and posterior tibial pulses present GI Inspection: No distended and No Abdominal panniculus present Palpation (GI): Soft to palpation, nontender, no guarding, not rigid, No hepatosplenomegaly present and Hepatosplenomegaly present Percussion: Yes normal to percussion Auscultation: normal bowel sounds Rectal Exam - Female: deferred Skin General skin exam: no rashes or lesions noted, turgor normal, skin not dry, no jaundice, No spider nevi and no striae Rashes: no rashes Nails: normal Neuro General: oriented to person, oriented to place and oriented to time Cranial nerves: Yes Equal, round and reactive pupils present and Yes Normal hearing present Speech: No Abnormal speech present Extrem General: Yes normal to inspection, No clubbing, No cyanosis and No edema Psych Thought process: Normal thought process present and not confabulating Thought content: Normal thought content present Insight: Good insight present (Psych) Judgement: Good judgement present (Psych) Assessment & Plan Assessment & Plan (1) GERD (gastroesophageal reflux disease): Code(s): K21.9 - Gastro-esophageal reflux disease without esophagitis Category: Medical (2) Constipation: Code(s): K59.00 - Constipation, unspecified Category: Medical (3) Abdominal bloating: Code(s): R14.0 - Abdominal distension (gaseous) Category: Medical Plan She continues on omeprazole 20 mg twice a day, bisacodyl, Colace, and Dulcolax. Her only new health problem is menopausal hot flashes for which she has been taking [id number] estrogen. Return office visit in 1 year Medications: Refilled docusate sodium 100 mg PO BID 60 caps 6RF K59.00 - Constipation, unspecified bisacodyl (Dulcolax (bisacodyl)) 10 mg (2 x 5 mg) PO BEDTIME 180 tabs 3RF 90 days K59.00 - Constipation, unspecified omeprazole 20 mg PO BID 60 caps 6RF 30 days simethicone (Gas Relief (simethicone)) 180 mg PO QID PRN 120 caps 6RF abdominal distention 30 days R14.0 - Abdominal distension (gaseous) Coding Level of Care Code Est Pt Level 3 (23087) Diagnoses GERD (gastroesophageal reflux disease) K21.9 Constipation K59.00 Abdominal bloating R14.0
[2025-04-07 10:45] VITALS: BP 112/76; PULSE 98; O2SAT 99; BMI 25.2
== END 2025-04-07 10:59 | disposition home or self-care (01) ==
LOC: HO.HGI 10:40
PROVIDERS: PCP Student in an Organized Health Care Education/Training Program; Visit Provider Nurse Practitioner
DX: K21.9 Gastro-esophageal reflux disease without esophagitis (principal); K59.00 Constipation, unspecified; R14.0 Abdominal distension (gaseous)
CPT/HCPCS: 99213

== ENCOUNTER → 2025-04-07 10:39 | Outpatient (BNVA) | payer MEDICAID, SELFPAY | PROVIDERS: PCP Student in an Organized Health Care Education/Training Program; Visit Provider Nurse Practitioner | DX: K21.9 Gastro-esophageal reflux disease without esophagitis (principal); K59.00 Constipation, unspecified; R14.0 Abdominal distension (gaseous) | CPT/HCPCS: 99212 ==